=== PATIENT | male | born 1950 | race Caucasian/White ===

== ENCOUNTER → 2021-08-23 10:32 | Outpatient (CLI) | payer MEDICARE, OTHER, SELFPAY ==
--- NOTE | 2021-08-23 10:36 | DI.CT.S_ITS ---
PROCEDURE: CT CHEST ABD PEL W CON INDICATIONS: new diagnosis prostate CA TECHNIQUE: After the administration of oral and intravenous contrast, axial sections acquired from the supraclavicular neck to the pubic symphysis. Coronal and sagittal reformats were performed. For radiation dose reduction, the following was used: automated exposure control, adjustment of mA and/or kV according to patient size. COMPARISON:None. FINDINGS: Image quality: Excellent. CHEST: Lower Neck: No enlarged lymph nodes. Thyroid: 5.6 mm hypoattenuating lesion in the right thyroid, which may reflect a nodule or cyst. Axillae: No enlarged lymph nodes. Chest Wall: Unremarkable. Lungs and Airways: No consolidation or suspicious nodules. Pleura: No pneumothorax or pleural effusions. Heart: Heart size is normal. No pericardial effusion. Coronary artery calcification. Thoracic Vessels: The aorta and pulmonary arteries demonstrate normal size. Mediastinum and Sadaf: No enlarged lymph nodes. Esophagus: No wall thickening. No hiatal hernia. ABDOMEN: Liver: Hepatic steatosis. Normal contour. Gallbladder: Unremarkable. Biliary ducts: Unremarkable. Pancreas: Unremarkable. Spleen: Unremarkable. Adrenal Glands: Unremarkable. Kidneys and Ureters: Symmetric enhancement without evidence of obstructive uropathy 2.2 cm hypoattenuating lesion in the right lower pole, which may represent a mildly complex cyst. Stomach and Bowel: Stomach, small bowel loops, and colon are unremarkable. Normal appendix. Peritoneum: No abnormal intraperitoneal fluid. No free air. Ventral Wall: Small fat containing periumbilical hernia. Abdominal Nodes: No retroperitoneal or mesenteric adenopathy by size criteria. Vessels: Aorta and inferior vena cava are normal in size. PELVIS: Pelvic Organs: Unremarkable. Bladder: Unremarkable. Pelvic Nodes: No enlarged lymph nodes. Miscellaneous: No inguinal hernias are seen. Bones: Multifocal degenerative change. IMPRESSION: 1. Mildly complex cyst in the right inferior lower pole. Consider renal ultrasound for further evaluation. 2. No suspicious osseous lesions. 3. Subcentimeter hypoattenuating lesion in the right thyroid, which may reflect a nodule or cyst. Consider correlation with thyroid function tests and ultrasound as clinically warranted. Dictated by: Osmar Arndt M.D. on 08/23/2021 at 13:20 Approved by: Osmar Arndt M.D. on 08/23/2021 at 13:28
--- NOTE | 2021-08-23 10:36 | DI.NM.S_ITS ---
PROCEDURE: NM BONE SCAN WHOLE BODY RADIOPHARMACEUTICAL: 20.4 mCi Tc-99m MDP IV. INDICATIONS: new diagnosis prostate CA TECHNIQUE: Delayed whole-body scintigrams were obtained approximately 3-4 hours after intravenous injection of radiotracer. Anterior and posterior views were acquired from vertex to feet. Additional left and right oblique views of the pelvis were obtained. COMPARISON: [facility], CT, CT CHEST ABD PEL W CON, 08/23/2021, 13:06. FINDINGS: Physiologic uptake is noted within the kidneys and bladder. Areas of increased uptake are noted within the shoulder girdles, knees as well as small bones of the feet most suggestive of degenerative change. There is increased uptake within the midline of the lower anterior neck, below the chin. IMPRESSION: Uptake is noted within the midline below the chin suspected to be related to degenerative change in the cervical spine. No definitive areas of metastatic disease are identified. Dictated by: Isela Howard M.D. on 08/23/2021 at 16:28 Approved by: Isela Howard M.D. on 08/23/2021 at 16:32
[2021-08-23 12:36] LABS: BUN Creatinine Ratio 15.8 (6-22); Blood Urea Nitrogen 15 mg/dL (9-20); Calcium 9.5 mg/dL (8.4-10.2); Carbon Dioxide 30 mmol/L (22-32); Chloride 103 mmol/L (98-107); Estimated Glomerular Filt Rate > 60.0 mL/min (>60); Glucose 127 mg/dL (80-110); HEMOLYSIS < 15 (0-50); Potassium 3.4 mmol/L (3.4-5.1); Sodium 140 mmol/L (137-145)
== END ==
PROVIDERS: PCP Family Medicine; Referring Provider Specialist; Visit Provider Specialist
DX: C61 Malignant neoplasm of prostate (principal); M81.8 Other osteoporosis without current pathological fracture; T38.7X5A Adverse effect of androgens and anabolic congeners, initial encounter; Z01.812 Encounter for preprocedural laboratory examination; N28.1 Cyst of kidney, acquired; E07.89 Other specified disorders of thyroid
CPT/HCPCS: 36415; 71260; 74177; 78306; 80048; A9503; Q9967

== ENCOUNTER → 2021-10-05 12:50 | Outpatient (CLI) | payer MEDICARE, OTHER, SELFPAY ==
--- NOTE | 2021-10-05 12:55 | DI.US.S_ITS ---
PROCEDURE: US RENAL COMPLETE INDICATIONS: nodular prostate TECHNIQUE: Real-time scanning was performed of the kidneys and bladder, with image documentation. COMPARISON: [facility], CT, CT CHEST ABD PEL W CON, 08/23/2021, 13:06. [facility], NM, NM BONE SCAN WHOLE BODY, 08/23/2021, 13:54. FINDINGS: Kidneys: Kidneys are normal in size. Right kidney measures 12.9 cm long; left kidney measures 14.7 cm long. Right renal cortical thickness is 1.2 cm; left renal cortical thickness is 1.3 cm. Renal cortical echotexture is normal. No hydronephrosis or nephrolithiasis. No suspicious solid mass lesions. There is a 2.5 x 1.8 x 1.8 cm cyst in the inferior right kidney. Bladder: Pre-void bladder volume is 167 mL. Post-void residual is 0 mL. Pre-void images demonstrate no intraluminal masses or stones. On pre-void images, neither ureteral jets are noted with color Doppler interrogation. (Of note, ureteral jets may not be detectable in up to 25% of cases due to insufficient differences in specific gravity between ureteral and bladder urine). Miscellaneous: No free pelvic fluid. IMPRESSION: 1. Prostate is not visualized. 2. No significant postvoid residual in urinary bladder. 3. A 2.5 x 1.8 x 1.8 cm cyst in the inferior right kidney. No hydronephrosis in either kidneys. Dictated by: Rufino Webb M.D. on 10/05/2021 at 14:38 Approved by: Rufino Webb M.D. on 10/05/2021 at 14:55
[2021-10-05 15:21] LABS: Prostate Specific Antigen 3.23 ng/mL (0.10-4.00)
== END ==
PROVIDERS: PCP Family Medicine; Referring Provider Specialist; Visit Provider Specialist
DX: M81.8 Other osteoporosis without current pathological fracture (principal); N40.2 Nodular prostate without lower urinary tract symptoms; R97.20 Elevated prostate specific antigen [PSA]; N28.1 Cyst of kidney, acquired
CPT/HCPCS: 36415; 76770; 77080; 84153

== ENCOUNTER → 2022-03-19 11:39 | Outpatient (CLI) | payer MEDICARE, OTHER, SELFPAY ==
[2022-03-19 14:32] LABS: Prostate Specific Antigen 1.19 ng/mL (0.10-4.00)
== END ==
PROVIDERS: PCP Family Medicine; Referring Provider Specialist; Visit Provider Specialist
DX: C61 Malignant neoplasm of prostate (principal)
CPT/HCPCS: 36415; 51798; 81002; 84153; 96372; 96402; 99215; J0897; J9217

== ENCOUNTER → 2022-06-06 15:14 | Outpatient (CLI) | payer MEDICARE, OTHER, SELFPAY ==
--- NOTE | 2022-06-06 15:18 | DI.CT.S_ITS ---
PROCEDURE: CT IVP A/P W/WO INDICATIONS: possible bleeding from bladder TECHNIQUE: Optional 5 mm thick noncontrast images acquired from the diaphragm to the symphysis pubis. After the administration of intravenous contrast, 5 mm thick images acquired from the diaphragm to the symphysis pubis after a 10-minute delay. 2 mm thick coronal and sagittal reformats were then performed of the kidneys and ureters. For radiation dose reduction, the following was used: automated exposure control, adjustment of mA and/or kV according to patient size. COMPARISON: [facility], CT, CT CHEST ABD PEL W CON, 08/23/2021, 13:06. FINDINGS: Image quality: Excellent. Lung bases: Lung bases are clear. Heart size is normal. Urinary system: Both kidneys are normal in size, without hydronephrosis or nephrolithiasis on pre-contrast images. Redemonstration of 2.2 cm inferior right renal pole hypodensity likely representing a renal cyst. This is stable in appearance. Stable appearance of minimal perinephric stranding likely related to senescent changes. There is normal bilateral renal enhancement. Renal calyces appear normal in morphology when filled with contrast. Opacified portions of both ureters demonstrate normal caliber. Bladder wall thickness is normal. No calcified bladder stones. No suspicious intraluminal filling defects or focally asymmetric urinary bladder wall abnormalities. Other solid organs: Liver is normal in size and enhancement. Gallbladder is unremarkable.. Biliary system is non dilated. Pancreas enhances normally. Spleen is normal in size and enhancement. No adrenal nodules. Peritoneum and bowel: Bowel loops demonstrate normal wall thickness and caliber. No free fluid or air. Nodes and vessels: No retroperitoneal or mesenteric adenopathy by size criteria. Aorta and inferior vena cava are normal in size. Abdominal wall: Fat containing umbilical hernia without acute inflammation. Pelvis: No pathologic free pelvic fluid. No inguinal hernias. No pelvic adenopathy. Interval visualization of surgical clips versus radiation seeds within the prostate. Bones: No suspicious bony lesions. No acute vertebral body compression fractures. Multilevel spondylosis of the imaged spine. IMPRESSION: 1. CT IVP without acute abnormalities. No abnormalities identified to explain patient's hematuria. No evidence for urolithiasis or obstructive uropathy. 2. Stable appearance of 2.2 cm inferior pole right renal cyst. 3. No suspicious osseous lesions. Dictated by: Mika Park M.D. on 06/06/2022 at 21:10 Approved by: Mika Park M.D. on 06/06/2022 at 21:30
[2022-06-06 15:55] LABS: BUN Creatinine Ratio 22.4 (6-22); Blood Urea Nitrogen 19 mg/dL (9-20); Calcium 8.8 mg/dL (8.4-10.2); Carbon Dioxide 25 mmol/L (22-32); Chloride 106 mmol/L (98-107); Estimated Glomerular Filt Rate > 60 mL/min (>60); Glucose 167 mg/dL (80-110); HEMOLYSIS < 15 (0-50); Potassium 3.1 mmol/L (3.4-5.1); Sodium 143 mmol/L (137-145)
== END ==
PROVIDERS: PCP Family Medicine; Referring Provider Specialist; Visit Provider Specialist
DX: C61 Malignant neoplasm of prostate (principal); N28.1 Cyst of kidney, acquired
CPT/HCPCS: 36415; 74178; 80048; Q9967

== ENCOUNTER → 2022-06-18 09:10 | Outpatient (CLI) | payer MEDICARE, OTHER, SELFPAY ==
[2022-06-18 10:55] LABS: Prostate Specific Antigen 0.485 ng/mL (0.10-4.00)
== END ==
PROVIDERS: PCP Family Medicine; Referring Provider Specialist; Visit Provider Specialist
DX: C61 Malignant neoplasm of prostate (principal); N30.41 Irradiation cystitis with hematuria
CPT/HCPCS: 51798; 81002; 84153; 96402; 99215; J9217

== ENCOUNTER → 2022-09-17 11:12 | Outpatient (CLI) | payer MEDICARE, OTHER, SELFPAY | PROVIDERS: PCP Family Medicine; Referring Provider Specialist; Visit Provider Specialist | DX: C61 Malignant neoplasm of prostate (principal) | CPT/HCPCS: 36415; 84153 ==

== ENCOUNTER → 2023-01-02 09:05 | Outpatient (CLI) | payer MEDICARE, OTHER, SELFPAY ==
[2023-01-02 11:42] LABS: Prostate Specific Antigen 0.256 ng/mL (0.10-4.00)
== END ==
PROVIDERS: PCP Family Medicine; Referring Provider Specialist; Visit Provider Specialist
DX: C61 Malignant neoplasm of prostate (principal)
CPT/HCPCS: 36415; 84153

== ENCOUNTER → 2023-04-02 14:15 | Outpatient (CLI) | payer MEDICARE, OTHER, SELFPAY ==
[2023-04-02 15:54] LABS: Prostate Specific Antigen 0.213 ng/mL (0.10-4.00)
== END ==
PROVIDERS: PCP Family Medicine; Referring Provider Specialist; Visit Provider Specialist
DX: C61 Malignant neoplasm of prostate (principal)
CPT/HCPCS: 36415; 84153

== ENCOUNTER 2024-01-27 20:16 | Emergency (ER) | payer MEDICARE, OTHER, SELFPAY ==
[2024-01-27] VITALS (9 sets, daily range): BP systolic 154–179; BP diastolic 70–92; PULSE 60–90; RESP 16–18; TEMP 36.4; O2SAT 95–99; BMI 31.8
--- NOTE | 2024-01-27 21:22 | DI.RAD.S_ITS ---
PROCEDURE: XR LUMBAR SPINE 2-3V INDICATIONS: pain after fall TECHNIQUE: 3 views of the lumbar spine were acquired. COMPARISON: None. FINDINGS: Bones: 5 [id number] vertebrae are present. Mild straightening of the normal lumbar lordosis. Minimal retrolisthesis of L2 on L3. There is multilevel facet arthropathy, worse at L4-5 and L5-S1. Moderate disc height loss with degenerative endplate changes and spurring is present. No vertebral body compression fractures. No suspicious bony lesions. Soft tissues: Overlying bowel gas pattern is normal. No suspicious soft tissue calcifications. Atherosclerotic vascular calcifications. IMPRESSION: Multilevel degenerative changes of the lumbar spine. No acute osseous abnormalities. Dictated by: Cornel Roman M.D. on 01/27/2024 at 21:41 Approved by: Cornel Roman M.D. on 01/27/2024 at 21:42
--- NOTE | 2024-01-27 21:26 | ED_ITS ---
HPI - Back Pain/Injury General Chief Complaint: Back Pain/Injury Stated Complaint: back pain Time Seen by Provider: 01/27/24 21:06 Source: patient and EMS History of Present Illness HPI Narrative: Patient is a 73-year-old male. History of Parkinson's disease. States he fell approximately 1 week ago. Did not specifically injured his back during that fall but since that time he has had occasional episodes where he feels like his back is spasming. He was Tylenol at home which he has been taking without any improvement. He reports no urinary issues. No change in bowel habits. No radiation down to his legs. He did receive some pain medication by EMS in route here to the ER which she reports some improvement of his symptoms. The symptoms do seem to be associated with movement. No fevers. He did not take his evening dose of Parkinson's medicines Related Data Home Medications Medication Instructions Recorded Confirmed amlodipine 5 mg tablet 2.5 mg PO DAILY 09/17/22 09/30/23 hydrochlorothiazide 25 mg tablet 12.5 mg PO DAILY 09/17/22 09/30/23 magnesium citrate 100 mg capsule 100 mg PO DAILY 01/02/23 09/30/23 tadalafil 20 mg tablet 20 mg PO DAILY PRN 01/02/23 09/30/23 Previous Rx's Medication Instructions Recorded atorvastatin 10 mg tablet 10 mg PO DAILY #14 tabs 12/01/20 carbidopa 25 mg-levodopa 100 mg 1 tab PO TID #60 tabs 12/01/20 disintegrating tablet pramipexole 0.75 mg tablet 1.5 mg (2 x 0.75 mg) PO TID #90 12/01/20 tabs tamsulosin 0.4 mg capsule 0.8 mg (2 x 0.4 mg) PO BEDTIME 01/02/23 #180 caps megestrol 20 mg tablet 20 mg PO DAILY #80 tabs 09/15/23 cyclobenzaprine 10 mg tablet 10 mg PO TID PRN muscle spasm #14 01/28/24 tabs hydrocodone 5 mg-acetaminophen 325 1 tab PO Q8H PRN pain #12 tabs 01/28/24 mg tablet Allergies Allergy/AdvReac Type Severity Reaction Status Date / Time bee venom protein (honey bee) Allergy Verified 01/27/24 20:29 Review of Systems Review of Systems Narrative: See HPI Patient History Medical History Erectile dysfunction due to and not concurrent with radiation therapy Lower urinary tract symptoms (LUTS) 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 Prostate cancer Nodular prostate Hyperlipemia Elevated PSA Depressive disorder Parkinson's disease Surgical History H/O vasectomy Family History Family/Other Parkinson's disease Father Heart disease Mother Hyperlipidemia Hypertension Social History marital status: unmarried,single number of children: 2 Smoking Status: Never smoker Smoking Status: Never smoker alcohol intake frequency: 0-2 drinks per day Substance Use Type: does not use Exam Initial Vital Signs Initial Vital Signs: Vital Signs Temperature 97.5 F L 01/27/24 20:22 Pulse Rate 60 01/27/24 20:22 Respiratory Rate 17 01/27/24 20:22 Blood Pressure 163/82 H 01/27/24 20:22 Pulse Oximetry 95 01/27/24 20:22 Oxygen Delivery Method Room Air 01/27/24 20:22 Const General: cooperative and No ill appearing HENMT Head: normal to inspection and normocephalic Resp Effort & Inspection: normal respiratory effort Auscultation: clear to auscultation bilaterally Cardio Rate: regular rate Back/Spine/Pelvis Thoracic/Lumbar Spine: paraspinal tenderness, No thoracic spinal tenderness and No lumbar spinal tenderness Neuro Other: Patient did have some involuntary shaking specifically of his upper arms consistent with his Parkinson's disease. Extrem Other: No gross deformities Course Orders Ordered: Discontinued Medications Hydrocodone Bitart/Acetaminophen (Hydrocodone/Acet 5/325 Tablet) 1 tab PO NOW ONE Stop: 01/28/24 04:49 Last Admin: 01/28/24 05:06 Dose: 1 tab Documented By: ANTONIO Hydrocodone Bitart/Acetaminophen (Hydrocodone/Acet 5/325 Prepack) 1 bottle MISC DIRECTED ONE Stop: 01/28/24 06:16 Last Admin: 01/28/24 06:38 Dose: 1 bottle Documented By: DAKOTA Amlodipine Besylate (Amlodipine 5 Mg Tablet) 2.5 mg PO NOW ONE Stop: 01/28/24 08:01 Last Admin: 01/28/24 07:21 Dose: 2.5 mg Documented By: YU Carbidopa/Levodopa (Carbidopa-Levodopa 25/100 Tablet) 1 each PO NOW ONE Stop: 01/27/24 21:25 Last Admin: 01/27/24 22:06 Dose: 1 each Documented By: ANTONIO Carbidopa/Levodopa (Carbidopa-Levodopa 25/100 Tablet) 1 each PO NOW ONE Stop: 01/28/24 08:01 Last Admin: 01/28/24 07:20 Dose: 1 each Documented By: YU Cyclobenzaprine HCl (Cyclobenzaprine 10 Mg Tablet) 10 mg PO NOW ONE Stop: 01/28/24 04:48 Last Admin: 01/28/24 05:06 Dose: 10 mg Documented By: ANTONIO Cyclobenzaprine HCl (Cyclobenzaprine 10 Mg Prepack) 1 bottle MISC DIRECTED ONE Stop: 01/28/24 06:16 Last Admin: 01/28/24 06:38 Dose: 1 bottle Documented By: DAKOTA Hydrochlorothiazide (Hydrochlorothiazide 25 Mg Tablet) 12.5 mg PO NOW ONE Stop: 01/28/24 08:01 Last Admin: 01/28/24 07:20 Dose: 12.5 mg Documented By: YU Hydromorphone HCl (Hydromorphone 0.5 Mg Inj) 0.5 mg IV NOW ONE Stop: 01/27/24 23:08 Last Admin: 01/28/24 00:21 Dose: 0.5 mg Documented By: ANTONIO Lidocaine (Lidocaine 5% Patch) 1 each TOP NOW ONE Stop: 01/28/24 04:48 Last Admin: 01/28/24 05:06 Dose: 1 each Documented By: ANTONIO Pramipexole Dihydrochloride (Pramipexole 0.25 Mg Tablet) 1.5 mg PO NOW ONE Stop: 01/27/24 21:26 Last Admin: 01/27/24 22:06 Dose: 1.5 mg Documented By: ANTONIO Pramipexole Dihydrochloride (Pramipexole 0.25 Mg Tablet) 1.5 mg PO NOW ONE Stop: 01/28/24 08:01 Last Admin: 01/28/24 07:19 Dose: 1.5 mg Documented By: YU Vital Signs Vital signs: Vital Signs - 8 hr 01/27/24 22:30 01/27/24 22:30 01/27/24 23:00 Pulse Rate 68 Respiratory Rate Blood Pressure 154/70 H 170/75 H Pulse Oximetry 98 01/27/24 23:00 01/27/24 23:46 01/27/24 23:46 Pulse Rate 66 90 Respiratory Rate 18 Blood Pressure 179/92 H Pulse Oximetry 97 96 01/28/24 00:00 01/28/24 00:00 01/28/24 00:30 Pulse Rate 75 63 Respiratory Rate 18 Blood Pressure 177/93 H Pulse Oximetry 95 92 01/28/24 00:39 01/28/24 00:39 01/28/24 01:00 Pulse Rate 65 Respiratory Rate Blood Pressure 131/69 131/72 Pulse Oximetry 94 01/28/24 01:00 01/28/24 01:30 01/28/24 01:31 Pulse Rate 62 60 Respiratory Rate Blood Pressure 147/77 H Pulse Oximetry 95 97 01/28/24 01:31 01/28/24 02:00 01/28/24 02:00 Pulse Rate 60 60 Respiratory Rate 18 Blood Pressure 160/76 H Pulse Oximetry 97 97 01/28/24 02:13 01/28/24 02:31 01/28/24 03:01 Pulse Rate Respiratory Rate 18 Blood Pressure 161/92 H 182/86 H Pulse Oximetry 94 01/28/24 04:00 Pulse Rate Respiratory Rate Blood Pressure 188/115 H Pulse Oximetry MDM - Back Pain/Injury Imaging Data Lumbar spine x-ray: Radiologist's Impression: PROCEDURE: XR LUMBAR SPINE 2-3V INDICATIONS: pain after fall TECHNIQUE: 3 views of the lumbar spine were acquired. COMPARISON: None. FINDINGS: Bones: 5 [id number]-iev-[id number] vertebrae are present. Mild straightening of the normal lumbar lordosis. Minimal retrolisthesis of L2 on L3. There is multilevel facet arthropathy, worse at L4-5 and L5-S1. Moderate disc height loss with degenerative endplate changes and spurring is present. No vertebral body compression fractures. No suspicious bony lesions. Soft tissues: Overlying bowel gas pattern is normal. No suspicious soft tissue calcifications. Atherosclerotic vascular calcifications. IMPRESSION: Multilevel degenerative changes of the lumbar spine. No acute osseous abnormalities. MDM Narrative Medical decision making narrative: Some improvement with medications here in the emergency department. It appears that the muscle relaxers have had the most improvement. He was here in the emergency department overnight because he did not have a ride back to his house which is on [facility]. His x-ray showed no signs of fracture. I do suspect muscular etiology. Plan will be to discharge home with symptom treatment. He was also given a walker that he can use as needed. He was given return precautions and follow-up instructions. He expressed understanding and agreement with plan. Discharge Plan Departure Patient Disposition: Home Clinical Impression: Lower back pain Instructions: DI for Low Back Pain Activity Restrictions/Additional Instructions: Continue to take all of your medications as directed. Use the pain medication and muscle relaxers as needed. Remember these medications can make you somewhat drowsy. Use the walker as needed. Contact your primary doctor for follow-up. Return to the emergency department for new symptoms. Prescriptions: New cyclobenzaprine 10 mg tablet 10 mg PO TID PRN (Reason: muscle spasm) Qty: 14 0RF hydrocodone-acetaminophen 5-325 mg tablet 1 tab PO Q8H PRN (Reason: pain) Qty: 12 0RF No Action carbidopa-levodopa 25-100 mg tablet,disintegrating 1 tab PO TID Qty: 60 0RF pramipexole 0.75 mg tablet 1.5 mg PO TID Qty: 90 0RF atorvastatin 10 mg tablet 10 mg PO DAILY Qty: 14 0RF megestrol 20 mg tablet 20 mg PO DAILY Qty: 80 0RF amlodipine 5 mg tablet 2.5 mg PO DAILY hydrochlorothiazide 25 mg tablet 12.5 mg PO DAILY magnesium citrate 100 mg capsule 100 mg PO DAILY tadalafil 20 mg tablet 20 mg PO DAILY PRN Rx Instructions: administer approximately 30min before sexual activity; do not use more than 1 dose per 24hrs tamsulosin 0.4 mg capsule 0.8 mg PO BEDTIME Qty: 180 3RF Referrals: Tim Kellogg MD [Primary Care Provider] - Stand Alone Forms: Patient Portal/API
[2024-01-27] MEDS: CARBIDOPA-LEVODOPA 25/100 TABLET 1 EACH PO (22:06)
[2024-01-27] MEDS: PRAMIPEXOLE 0.25 MG TABLET 1.5 MG PO (22:06)
[2024-01-28] VITALS (12 sets, daily range): BP systolic 131–188; BP diastolic 69–115; PULSE 60–75; RESP 16–18; O2SAT 92–97
[2024-01-28] MEDS: HYDROMORPHONE 0.5 MG INJ IV (00:21)
[2024-01-28] MEDS: LIDOCAINE 5% PATCH 1 EACH TOP (05:06)
[2024-01-28] MEDS: HYDROCODONE/ACET 5/325 TABLET 1 TAB PO (05:06)
[2024-01-28] MEDS: CYCLOBENZAPRINE 10 MG TABLET PO (05:06)
[2024-01-28] MEDS: HYDROCODONE/ACET 5/325 PREPACK 1 BOTTLE MISC (06:38)
[2024-01-28] MEDS: CYCLOBENZAPRINE 10 MG PREPACK 1 BOTTLE MISC (06:38)
[2024-01-28] MEDS: PRAMIPEXOLE 0.25 MG TABLET 1.5 MG PO (07:19)
[2024-01-28] MEDS: hydroCHLOROthiazide 25 MG TABLET 12.5 MG PO (07:20)
[2024-01-28] MEDS: CARBIDOPA-LEVODOPA 25/100 TABLET 1 EACH PO (07:20)
[2024-01-28] MEDS: AMLODIPINE 5 MG TABLET 2.5 MG PO (07:21)
--- NOTE | 2024-01-28 08:20 | PC.NURSE ---
Pt sitting in wheelchair in room. cab called for pt by MARC. Pt states his pain is a little better from his arrival. Pt with parkinsons and assisted with shoes. DC info given and pt with verbal understanding. cell phone wallet and prepacks with DC instructions placed in belongings bag. Walker provided. Pt assisted to front ER entrance and assisted into [facility] cab.
== END 2024-01-28 08:23 | disposition home or self-care (01) ==
PROVIDERS: Emergency Provider Emergency Medicine; PCP Family Medicine
DX: M54.50 Low back pain, unspecified (principal); G20.A1 Parkinson's disease without dyskinesia, without mention of fluctuations
CPT/HCPCS: 72100; 96374; 99284; J1170

== ENCOUNTER → 2024-09-24 16:27 | Outpatient (CLI) | payer MEDICARE, OTHER, SELFPAY ==
[2024-09-24 17:47] LABS: Prostate Specific Antigen 0.309 ng/mL (0.10-4.00)
== END ==
PROVIDERS: PCP Family Medicine; Referring Provider Urology; Visit Provider Urology
DX: C61 Malignant neoplasm of prostate (principal)
CPT/HCPCS: 36415; 84153

== ENCOUNTER → 2024-10-19 09:53 | Outpatient (CLI) | payer MEDICARE, OTHER, SELFPAY ==
--- NOTE | 2024-10-19 09:55 | DI.NM.S_ITS ---
PROCEDURE: NM JUAN FRANCISCO PERF SPECT R&S PHARM Rest and pharmacological stress myocardial perfusion SPECT with gated imaging and ejection fraction RADIOPHARMACEUTICAL: 12.3 mCi Tc-99m tetrafosmin IV at rest and 26.3 mCi Tc-99m tetrafosmin IV at peak effect of pharmacological stress. [id number] was performed. INDICATIONS: SOB TECHNIQUE: Radiopharmaceutical was injected at peak stress test, and also at rest. SPECT images were obtained. SPECT myocardial perfusion images were displayed in short axis, horizontal long axis, and vertical long axis views. Gated images were reviewed using LAFASO software. COMPARISON: None. CARDIAC STRESS: A pharmacologic stress test was performed under the supervision of an attending staff, using an infusion of lexiscan 0.4mg IV X1. Hemodynamic data: There is normal blood pressure and heart rate response to pharmacologic stress. Symptoms: The patient denied anginal chest pain. Aminophylline: none EKG: Rate related LBBB present. No diagnostic changes of ischemia; no ectopy. FINDINGS: Raw data: There is good myocardial uptake of radiotracer. No significant motion artifacts. Iqyi-ux-ecqap ratio is 0.34 (normal is less than 0.38 for tetrafosmin tracer). Left ventricle function: Gated images demonstrate normal left ventricular wall thickening. No segmental wall motion abnormalities. No transient ischemic dilation; TID is 0.91 (normal less than 1.3). Left ventricle resting end diastolic volume is 160mL. Left ventricle stress ejection fraction is 71%; normal range is above 45%. Myocardial perfusion: There is a mildly intense fixed inferior wall defect that is probably artifact but old non-transmural infarction can't be excluded due to absence of prone images. IMPRESSION: Low risk, probably normal pharm nuclear stress test from inducible ischemia standpoint. 1) There is a mildly intense fixed inferior wall defect that is probably artifact but old non-transmural infarction can't be excluded due to absence of prone images. SSS 1. 2) Enlarged left ventricle (resting EDV 160cc) with normal wall motion, and normal systolic function (EF post stress 71%). 3) No diagnostic ST changes with lexiscan. Rate related LBBB present during the study. 4) No angina during the study. 5) No prior nuclear stress test available for comparison. Dictated by: Tamanna Siu MD on 10/20/2024 at 13:22 Approved by: Tamanna Siu MD on 10/20/2024 at 13:26
== END ==
LOC: NUCM 09:54
PROVIDERS: PCP Family Medicine; Referring Provider Internal Medicine Cardiovascular Disease; Visit Provider Internal Medicine Cardiovascular Disease
DX: R06.02 Shortness of breath (principal)
CPT/HCPCS: 78452; 93017; A9502; J2785

== ENCOUNTER 2024-11-11 22:25 | Inpatient (IN) | payer MEDICARE, OTHER, SELFPAY ==
[2024-11-11 22:32] VITALS: BP 171/86; PULSE 77; RESP 18; TEMP 38.1; BMI 33.2
--- NOTE | 2024-11-11 22:34 | EKG_ITS ---
[id number] [address] Test Date: 2024-11-11 Pat Name: Laureano Solomon Department: Room: 207 Gender: Male [employer]: AXEL : 1950 Requested By: Order Number: [id number] Reading MD: Camden Suarez Measurements Intervals [place] Rate: 70 P: 46 ID: [id number] QRS: 57 QRSD: 92 T: 246 QT: 354 QTc: 382 Interpretive Statements Normal sinus rhythm ST & T wave abnormality, consider inferolateral ischemia Electronically Signed On 11-12-2024 16:16:46 PDT by Camden Suarez
[2024-11-11 22:59] LABS: Appearance Urine UA CLEAR; Bilirubin Urine UA NEGATIVE (NEGATIVE); Color Urine UA YELLOW; Glucose Urine UA NEGATIVE (Negative); Ketones Urine UA TRACE (NEGATIVE); Leukocyte Esterase Urine UA NEGATIVE (NEGATIVE); Nitrite Urine UA NEGATIVE (Negative); Occult Blood Urine UA NEGATIVE (Negative); Protein Urine UA NEGATIVE (Negative); Specific Gravity Urine UA 1.025 (1.000-1.035); Urobilinogen Urine UA 0.2 E.U./dL (0.2); pH Urine UA 5.5 (4.5-8.0)
[2024-11-11 23:00] VITALS: PULSE 69; RESP 25; O2SAT 95
[2024-11-11 23:03] LABS: Ictotest Urine Negative (Negative)
[2024-11-11 23:05] LABS: Bacteria Urine Occasional (0-1); Culture Indicated Urine Cult Not Indicated; Mucus Urine 1+ (Negative); RBC Urine 0-1/HPF (0-5/HPF); Squamous Epithelial Cell Urine 0-1 /HPF (0-5/HPF); Urine Volume 10mL (spun); WBC Urine 0-1/HPF (0-5/HPF)
--- NOTE | 2024-11-11 23:25 | DI.RAD.S_ITS ---
PROCEDURE: XR CHEST 1V INDICATIONS: fever, weakness TECHNIQUE: One view of the chest was acquired. COMPARISON: [facility], CT, CT CHEST ABD PEL W CON, 08/23/2021, 13:06. FINDINGS AND IMPRESSION: Low lung volumes. No airspace consolidation or pleural effusion on this single view study. Heart size is within normal limits. Degenerative osseous changes. Dictated by: Anoop Mcwilliams M.D. on 11/12/2024 at 0:14 Approved by: Anoop Mcwilliams M.D. on 11/12/2024 at 0:15
[2024-11-11 23:30] VITALS: PULSE 80; RESP 25; O2SAT 95
--- NOTE | 2024-11-11 23:32 | ED.WEAKNESS ---
HPI - Weakness General Chief complaint: Weakness Stated complaint: GLF lift assist Time Seen by Provider: 11/11/24 23:20 Source: patient and EMS Mode of arrival: EMS History of Present Illness HPI Narrative: 74-year-old male history of Parkinson's disease, VANDA, BPH, hypertension, dyslipidemia patient presents with complaint of increased weakness and inability to get out of his bed today. He was noticed some increasing weakness over the past 2 or 3 days. Was febrile for EMS and here in the department. He has not really appreciate a lot of fevers recently. Notes a little bit of chest pain but states that is typically related to his Parkinson's. Denies new shortness of breath. He was has a little bit of a cough he states it has been nonproductive he has not appreciate any other cold symptoms. States no nausea or vomiting. He was had diarrhea intermittently for the past month. States he has a little bit of abdominal discomfort yesterday but none today. No black or bloody stools. Patient states no dysuria, urgency or frequency. He notes generalized weakness of his extremities he can move them but was not able to get out of bed he usually uses his door to assist him which is close to the bed. Patient states he was on medications for his Parkinson's. He was denies any prior surgeries. He states allergic to bees but no medications. No tobacco, occasional alcohol, no recreational drugs. He lives on [facility]. He lives independently and alone. Today he reached a point where he could not get out of bed EMS arrived and was transported here. Related Data Home Medications ?Medication ?Instructions ?Recorded ?Confirmed amlodipine 5 mg tablet 2.5 mg PO DAILY 09/17/22 11/12/24 hydrochlorothiazide 25 mg tablet 12.5 mg PO DAILY 09/17/22 11/12/24 magnesium citrate 100 mg capsule 100 mg PO DAILY 01/02/23 11/12/24 tadalafil 20 mg tablet 20 mg PO DAILY PRN sexual activity 01/02/23 11/12/24 cyclobenzaprine 10 mg tablet 10 mg PO BEDTIME PRN muscle spasm 11/12/24 11/12/24 Previous Rx's ?Medication ?Instructions ?Recorded carbidopa 25 mg-levodopa 100 mg 1 tab PO TID #60 tabs 12/01/20 disintegrating tablet pramipexole 0.75 mg tablet 1.5 mg (2 x 0.75 mg) PO TID #90 12/01/20 tabs hydrocodone 5 mg-acetaminophen 325 1 tab PO Q8H PRN pain #12 tabs 01/28/24 mg tablet tamsulosin 0.4 mg capsule 0.4 mg PO DAILY #90 caps 09/24/24 Allergies Allergy/AdvReac Type Severity Reaction Status Date / Time bee venom protein (honey bee) Allergy Verified 09/24/24 15:44 Review of Systems Review of Systems ROS Unobtainable: All systems reviewed & are unremarkable except as noted in HPI and below Patient History Medical History Erectile dysfunction due to and not concurrent with radiation therapy Lower urinary tract symptoms (LUTS) 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 HEENT: Atraumatic, pupils are equal round reactive to light, extraocular movements are intact, nares are clear, TMs are clear with no fluid, there is no conjunctival pallor. Throat is clear without any exudates, erythema, tonsillar enlargement or uvular deviation HEART: Regular rate and rhythm without murmur, clicks, rubs. pulses are equal in upper and lower extremities LUNGS:Lungs clear to auscultation, no wheezes, rales, crackles, chest moves symmetrically, no tachypnea or accessory muscle use ABD:bowel sounds normal, soft, non-tender, no guarding, rebound, rigidity, no masses noted, no hepatosplenomegaly :No CVA tenderness MSCL: Non-tender, no muscle atrophy, patient has some global weakness but is able to lift and move all of his extremities off of the bed equally, full range of motion. NEURO:CN 2-12 intact, sensation normal, patient was pill-rolling tremor bilateral upper extremities and tremors in general. Initial Vital Signs Initial Vital Signs: Vital Signs Temperature 100.6 F H 11/11/24 22:32 Pulse Rate 77 11/11/24 22:32 Respiratory Rate 18 11/11/24 22:32 Blood Pressure 171/86 H 11/11/24 22:32 Course Orders Ordered: ED Orders 11/11/24 22:49 Ictotest Urine Stat Urinalysis and Microscopic Stat 11/11/24 22:50 EKG-12 Lead Stat 11/11/24 23:25 Chest [XR chest 1V] Stat 11/12/24 00:00 Covid-19 + FLU A/B + RSV - PCR Stat Discontinued Medications Acetaminophen (Acetaminophen 325 Mg Tablet) 975 mg PO NOW ONE Stop: 11/11/24 23:43 Vital Signs Vital signs: Vital Signs - 8 hr 11/11/24 22:32 11/11/24 23:00 11/11/24 23:30 Temperature 100.6 F H Pulse Rate 77 69 80 Respiratory Rate 18 25 H 25 H Blood Pressure 171/86 H Pulse Oximetry 95 95 11/12/24 00:12 11/12/24 00:12 11/12/24 00:49 Temperature Pulse Rate 71 71 Respiratory Rate 20 18 Blood Pressure 165/68 H Pulse Oximetry 97 96 11/12/24 00:49 Temperature Pulse Rate Respiratory Rate Blood Pressure 138/88 Pulse Oximetry MDM - Weakness Lab Data 11/11/24 00:00 11/11/24 00:00 Labs: Lab Results 11/11/24 11/11/24 Range/Units 00:00 22:49 WBC 7.4 (4.5-11.0) X10^3/uL RBC 4.69 (4.5-5.9) X10^6/uL Hgb 13.8 (13.5-17.5) g/dL Hct 40.7 L (41-53) % MCV 86.8 (80-100) fL MCH 29.4 (26-34) PG MCHC 33.9 (30-36) % RDW 14.8 (11.6-14.8) % Plt Count 195 (150-400) X10^3/uL Neut % (Auto) 87.9 H (50-75) % Lymph % (Auto) 7.0 L (25-40) % [place] % (Auto) 4.8 (3-14) % Eos % (Auto) 0.1 L (2-4) % Baso % (Auto) 0.2 (0-2) % Neut # (Auto) 6500 (6969-0620) /uL Lymph # (Auto) 500 L (0010-9566) /uL [place] # (Auto) 400 (0-900) /uL Eos # (Auto) 0 (0-450) /uL Baso # (Auto) 0 (0-100) /uL Sodium 139 (137-145) mmol/L Potassium 3.5 (3.4-5.1) mmol/L Chloride 103 (98-107) mmol/L Carbon Dioxide 29 (22-32) mmol/L BUN 17 (9-20) mg/dL Creatinine 1.08 (0.66-1.25) mg/dL Estimated GFR > 60 (>60) mL/min BUN/Creatinine Ratio 15.7 (6-22) Glucose 109 H (70-99) mg/dL Lactate 1.1 (0.7-2.1) mmol/L Calcium 9.3 (8.4-10.2) mg/dL Total Bilirubin 0.8 (0.2-1.3) mg/dL AST 24 (17-59) IU/L ALT 18 (<50) IU/L Alkaline Phosphatase 98 (38-126) U/L Total Protein 7.3 (6.3-8.2) g/dL Albumin 4.5 (3.5-5.0) g/dL Globulin 2.8 (1.7-4.1) g/dL Albumin/Globulin Ratio 1.6 (1.0-2.8) Lipase 35 (23-300) U/L Urine Color Yellow Urine Appearance Clear Urine pH 5.5 (4.5-8.0) Ur Specific [place] 1.025 (1.000-1.035) Urine Protein Negative (Negative) Urine Glucose (UA) Negative (Negative) g/dL Urine Ketones Trace H (NEGATIVE) Urine Occult Blood Negative (Negative) Urine Nitrate Negative (Negative) Urine Bilirubin Negative (NEGATIVE) Ur Bilirubin Confirm Negative (Negative) Urine Urobilinogen 0.2 (0.2) E.U./dL Ur Leukocyte Esterase Negative (NEGATIVE) Urine RBC 0-1/hpf (0-5/HPF) Urine WBC 0-1/hpf (0-5/HPF) Ur Squamous Epith Cells 0-1 /hpf (0-5/HPF) Urine Bacteria Occasional (0-1) (None) Urine Mucus 1+ H (Negative) Ur Culture Indicated? Cult not indicated Vol Urine Centrifuged 10ml (spun) Urine Dip Bedside Urine Glucose Negative Bedside Urine Bilirubin + 1 Bedside Urine Ketone +/- 5 Urine Specific [place] 1.025 Bedside Urine Occult Blood - Negative Bedside Urine pH 6.0 Bedside Urine Protein +/- 15 Bedside Urine Urobilinogen - Negative Bedside Urine Nitrite - Negative Bedside Urine Leukocytes - Negative Esterase ECG Data Attestation: I personally reviewed and interpreted this ECG as follows: Interpretation: Sinus rhythm rate of 70 [place] 178 QRS of 92 QTC of 382, ST depression lateral leads 2 3 and AVF. No elevation. MDM Narrative Medical decision making narrative: White count 7 hemoglobin is 13 platelets are 195, chemistries are appropriate renal function is normal glucose is 109 lactate 1.1 LFTs are negative, procalcitonin is 0.135. COVID/influenza/RSV is negative Urine shows trace ketones no nitrates leuks, 1+ mucus. Chest x-ray shows no as brisk consolidation or pleural effusion heart size within normal limits degenerative osseous changes. Patient received Tylenol. Patient is febrile nontoxic but quite weak and been able to stand or ambulate. Received home medication of carbidopa levodopa in his pramipexole. Also received Rocephin azithromycin, fluids. Spoke with tele hospitalist Dr. Boyd, who accepts for observation we will cover prophylactically antibiotics patient has had a cough recently could possibly have clinical pneumonia but without chest x-ray changes. We will also hydrate. Discussed we will give Rocephin and azithromycin. Discharge Plan Departure Patient Disposition: Admitted as Observation Clinical Impression: Fever Admit Date/Time: 11/12/24 01:25 Admit Provider: John Boyd
[2024-11-12] VITALS (7 sets, daily range): BP systolic 106–180; BP diastolic 57–88; PULSE 57–80; RESP 18–26; TEMP 36.6–37; O2SAT 94–99; BMI 33.2
[2024-11-12 00:46] LABS: Add Manual Diff / Slide Review NO; Basophils Absolute Auto 0 /uL (0-100); Basophils Percent Auto 0.2 % (0-2); Eosinophils Absolute Auto 0 /uL (0-450); Eosinophils Percent Auto 0.1 % (2-4); Hematocrit 40.7 % (41-53); Hemoglobin 13.8 g/dL (13.5-17.5); Lymphocytes Absolute Auto 500 /uL (1100-4500); Mean Corpuscular HGB Conc 33.9 % (30-36); Mean Corpuscular Hemoglobin 29.4 PG (26-34); Mean Corpuscular Volume 86.8 fL (80-100); Monocytes Absolute Auto 400 /uL (0-900); Monocytes Percent Auto 4.8 % (3-14); Neutrophils Absolute Auto 6500 /uL (1500-7000); Neutrophils Percent Auto 87.9 % (50-75); Platelet Count 195 X10^3/uL (150-400); Red Blood Cell Count 4.69 X10^6/uL (4.5-5.9); Red Cell Distribution Width 14.8 % (11.6-14.8); White Blood Cell Count 7.4 X10^3/uL (4.5-11.0)
[2024-11-12 01:00] LABS: Lactate (Lactic Acid) 1.1 mmol/L (0.7-2.1); Lipase 35 U/L (23-300)
--- NOTE | 2024-11-12 01:00 | PC.NURSE ---
pt states his sister is a doctor and she is the one that handles his medications, he normally has a list of his medications in his bag and not just the pill box
[2024-11-12 01:01] LABS: Alanine Aminotransferase 18 IU/L (<50); Albumin 4.5 g/dL (3.5-5.0); Albumin Globulin Ratio 1.6 (1.0-2.8); Alkaline Phosphatase 98 U/L (38-126); Aspartate Aminotransferase 24 IU/L (17-59); BUN Creatinine Ratio 15.7 (6-22); Bilirubin Total 0.8 mg/dL (0.2-1.3); Blood Urea Nitrogen 17 mg/dL (9-20); Calcium 9.3 mg/dL (8.4-10.2); Carbon Dioxide 29 mmol/L (22-32); Chloride 103 mmol/L (98-107); Estimated Glomerular Filt Rate > 60 mL/min (>60); Globulin 2.8 g/dL (1.7-4.1); Glucose 109 mg/dL (70-99); HEMOLYSIS < 15 (0-50); Potassium 3.5 mmol/L (3.4-5.1); Sodium 139 mmol/L (137-145); Total Protein 7.3 g/dL (6.3-8.2)
[2024-11-12 01:18] LABS: Procalcitonin 0.135 ng/mL (<0.5)
[2024-11-12] MEDS: ACETAMINOPHEN 325 MG TABLET 975 MG PO (01:26)
[2024-11-12 01:38] LABS: Influenza A - CEPHEID Flu A NEGATIVE (NEGATIVE); Influenza B - CEPHEID Flu B NEGATIVE (NEGATIVE); Respiratory Syncytial Virus Negative (Negative)
[2024-11-12 01:40] LABS: COVID-19 CEPHEID 4-PLEX PCR Negative (Negative)
--- NOTE | 2024-11-12 01:45 | PC.NURSE ---
Assisted with Dr. Boyd intake for hospital stay.
--- NOTE | 2024-11-12 02:39 | PM.HP.1 ---
History of Present Illness History of Present Illness Chief complaint: GLF lift assist Narrative: 74-year-old male with past medical history of Parkinson's disease, depression, hyperlipidemia, prostate cancer, recurrent UTIs BPH and hypertension presents with generalized weakness. Per the patient's report, the patient has been having increasing generalized weakness over the last 2 to 3 days. Today the patient was unable to get out of bed due to generalized weakness. The patient also had subjective fevers but denies any chills, nausea, vomiting, diarrhea, chest pain or shortness of breath. The patient however admitted to have some nonproductive cough with some abdominal discomfort. The patient states that he has been compliant to taking his Parkinson's disease as instructed. In our emergency room, the patient was hemodynamically stable. Labs shows WBC of 7 and UA that is negative for UTI. Chest x-ray was clear. Viral panel pending. Due to generalized weakness and possible UTI ER physician started on IV ceftriaxone and azithromycin and request for admission. 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 Prostate cancer Nodular prostate Hyperlipemia Elevated PSA Depressive disorder Parkinson's disease Surgical History H/O vasectomy Family History Family/Other Parkinson's disease Father Heart disease Mother Hyperlipidemia Hypertension Social History marital status: unmarried,single number of children: 2 Meds Home Medications and Allergies Home Medications ?Medication ?Instructions ?Recorded ?Confirmed ?Type carbidopa 25 mg-levodopa 100 mg 1 tab PO TID #60 tabs 12/01/20 11/12/24 Rx disintegrating tablet pramipexole 0.75 mg tablet 1.5 mg (2 x 0.75 mg) PO TID #90 12/01/20 11/12/24 Rx tabs amlodipine 5 mg tablet 2.5 mg PO DAILY 09/17/22 11/12/24 History hydrochlorothiazide 25 mg tablet 12.5 mg PO DAILY 09/17/22 11/12/24 History magnesium citrate 100 mg capsule 100 mg PO DAILY 01/02/23 11/12/24 History tadalafil 20 mg tablet 20 mg PO DAILY PRN sexual activity 01/02/23 11/12/24 History hydrocodone 5 mg-acetaminophen 325 1 tab PO Q8H PRN pain #12 tabs 01/28/24 11/12/24 Rx mg tablet tamsulosin 0.4 mg capsule 0.4 mg PO DAILY #90 caps 09/24/24 11/12/24 Rx cyclobenzaprine 10 mg tablet 10 mg PO BEDTIME PRN muscle spasm 11/12/24 11/12/24 History Allergies Allergy/AdvReac Type Severity Reaction Status Date / Time bee venom protein (honey bee) Allergy Verified 09/24/24 15:44 Review of Systems Review of Systems ROS: Yes All systems reviewed with the patient and are negative except as otherwise documented Exam Vital Signs (past 8 hours): - 11/11/24 22:32 11/11/24 23:00 11/11/24 23:30 Temperature 100.6 F H Pulse Rate 77 69 80 Respiratory Rate 18 25 H 25 H Blood Pressure 171/86 H Pulse Oximetry 95 95 Oxygen Delivery Method 11/12/24 00:12 11/12/24 00:12 11/12/24 00:49 Temperature Pulse Rate 71 71 Respiratory Rate 20 18 Blood Pressure 165/68 H Pulse Oximetry 97 96 Oxygen Delivery Method 11/12/24 00:49 11/12/24 01:00 11/12/24 01:00 Temperature Pulse Rate 67 Respiratory Rate 25 H Blood Pressure 138/88 161/88 H Pulse Oximetry 94 Oxygen Delivery Method Room Air 11/12/24 01:30 11/12/24 01:30 11/12/24 02:00 Temperature Pulse Rate 80 76 Respiratory Rate 26 H 18 Blood Pressure 179/80 H Pulse Oximetry Oxygen Delivery Method 11/12/24 02:00 Temperature Pulse Rate Respiratory Rate Blood Pressure 180/71 H Pulse Oximetry Oxygen Delivery Method Oxygen Delivery Method Room Air Narrative Exam Narrative: Physical Exam: GENERAL: The patient is not in any acute distressed. Awake and alert. HEENT: Nonicteric sclerae, PERRLA, EOMI. Oropharynx clear. Moist mucous membranes. Conjunctivae appear well perfused. HEART: Regular rate and rhythm without murmurs. No lower extremities edema. LUNGS: Clear to auscultation bilaterally. No wheezing, crackles or rhonchi ABDOMEN: Soft, positive bowel sounds, nontender. SKIN: No rash, no excessive bruising, petechiae, or purpura. NEUROLOGIC: AxO x 3. Cranial nerves II-XII intact without motor/sensory deficit. Objective Labs 11/11/24 00:00 11/11/24 00:00 Labs: Laboratory Results - last 24 hr 11/11/24 11/11/24 11/12/24 00:00 22:49 00:00 WBC 7.4 RBC 4.69 Hgb 13.8 Hct 40.7 L MCV 86.8 MCH 29.4 MCHC 33.9 RDW 14.8 Plt Count 195 Neut % (Auto) 87.9 H Lymph % (Auto) 7.0 L [place] % (Auto) 4.8 Eos % (Auto) 0.1 L Baso % (Auto) 0.2 Neut # (Auto) 6500 Lymph # (Auto) 500 L [place] # (Auto) 400 Eos # (Auto) 0 Baso # (Auto) 0 Sodium 139 Potassium 3.5 Chloride 103 Carbon Dioxide 29 BUN 17 Creatinine 1.08 Estimated GFR > 60 BUN/Creatinine Ratio 15.7 Glucose 109 H Lactate 1.1 Calcium 9.3 Total Bilirubin 0.8 AST 24 ALT 18 Alkaline Phosphatase 98 Total Protein 7.3 Albumin 4.5 Globulin 2.8 Albumin/Globulin Ratio 1.6 Lipase 35 Procalcitonin 0.135 Urine Color Yellow Urine Appearance Clear Urine pH 5.5 Ur Specific [place] 1.025 Urine Protein Negative Urine Glucose (UA) Negative Urine Ketones Trace H Urine Occult Blood Negative Urine Nitrate Negative Urine Bilirubin Negative Ur Bilirubin Confirm Negative Urine Urobilinogen 0.2 Ur Leukocyte Esterase Negative Urine RBC 0-1/hpf Urine WBC 0-1/hpf Ur Squamous Epith Cells 0-1 /hpf Urine Bacteria Occasional (0-1) Urine Mucus 1+ H Ur Culture Indicated? Cult not indicated Vol Urine Centrifuged 10ml (spun) SARS-CoV-2 (PCR) Negative Influenza A (RT-PCR) Flu a negative Influenza B (RT-PCR) Flu b negative RSV (PCR) Negative Assessment & Plan Assessment & Plan narrative: Possible community-acquired pneumonia. Admit the patient to medical observation. Continue empiric antibiotic with azithromycin and ceftriaxone. Though chest x-ray is clear patient's has a fever and ongoing cough. Consider repeating chest x-ray after IV fluid to see if there is any underlying pneumonia. Pending viral panel. Dehydration. IV fluid. Parkinson's disease. Resume home Parkinson's medication with PT OT. Generalized weakness. Likely from infection above. Treat as above and will consult PT OT in the morning. Hyperlipidemia. Resume home statin. BPH. Resume home Flomax. Hypertension. Monitor blood pressure and treat as needed. DVT prophylaxis heparin subcu. CODE STATUS full code. Disposition likely home in 2 days. - As the provider of this telehealth evaluation, requested by the patient's evaluating physician, I attest that I introduced myself to the patient, provided my credentials and determined that telemedicine via a real-time, 2 way interactive audio and video platform is an appropriate and effective means of providing this service. - I reviewed the patient's chart and had a discussion with the member of the patient's treatment team. - The patient and I mutually agreed with continuation of this evaluation via telemedicine. The patient consented for the telemedicine evaluation. - This virtual encounter was taken place from [place] by Dr. John Boyd. The patient was evaluated at [facility]. The encounter was approximately 35 minutes. The nurse was present during the entire time of the encounter and was able to move the stethoscope in appropriate directions. Time-Based Coding :: [TOTAL MINUTES] spent with patient and on the chart (including review of chart, obtaining history, exam, reviewing outside data, placing orders, documenting exam and treatment plan, and counseling patient) on [DATE].
[2024-11-12] MEDS: SODIUM CHLORIDE 0.9% 1,000 ML 1000 ML IV (02:47)
[2024-11-12] MEDS: cefTRIAXone 1,000 MG in SODIUM CHLORIDE 0.9% 100 ML 200 MG IV ×2 (02:50→09:31)
[2024-11-12] MEDS: AZITHROMYCIN 250 MG TABLET 500 MG PO (02:51)
[2024-11-12] MEDS: CARBIDOPA-LEVODOPA 25/100 TABLET 1 EACH PO ×4 (03:16→20:48)
[2024-11-12] MEDS: PRAMIPEXOLE 0.25 MG TABLET 1.5 MG PO ×4 (03:17→20:48)
[2024-11-12] MEDS: SODIUM CHLORIDE 0.9% 1,000 ML 75 ML IV ×2 (04:00→18:49)
[2024-11-12 07:07] LABS: Add Manual Diff / Slide Review NO; Basophils Absolute Auto 0 /uL (0-100); Basophils Percent Auto 0.4 % (0-2); Eosinophils Absolute Auto 0 /uL (0-450); Eosinophils Percent Auto 0.2 % (2-4); Hematocrit 37.8 % (41-53); Hemoglobin 12.7 g/dL (13.5-17.5); Lymphocytes Absolute Auto 600 /uL (1100-4500); Lymphocytes Percent Auto 9.1 % (25-40); Mean Corpuscular HGB Conc 33.6 % (30-36); Mean Corpuscular Hemoglobin 29.4 PG (26-34); Mean Corpuscular Volume 87.7 fL (80-100); Monocytes Absolute Auto 500 /uL (0-900); Monocytes Percent Auto 7.6 % (3-14); Neutrophils Absolute Auto 5900 /uL (1500-7000); Neutrophils Percent Auto 82.7 % (50-75); Platelet Count 156 X10^3/uL (150-400); Red Blood Cell Count 4.31 X10^6/uL (4.5-5.9); Red Cell Distribution Width 14.6 % (11.6-14.8); White Blood Cell Count 7.1 X10^3/uL (4.5-11.0)
[2024-11-12 07:14] LABS: Alanine Aminotransferase 14 IU/L (<50); Albumin 3.7 g/dL (3.5-5.0); Albumin Globulin Ratio 1.4 (1.0-2.8); Alkaline Phosphatase 77 U/L (38-126); Aspartate Aminotransferase 25 IU/L (17-59); BUN Creatinine Ratio 19.4 (6-22); Bilirubin Total 0.7 mg/dL (0.2-1.3); Blood Urea Nitrogen 20 mg/dL (9-20); Calcium 8.6 mg/dL (8.4-10.2); Carbon Dioxide 27 mmol/L (22-32); Chloride 107 mmol/L (98-107); Estimated Glomerular Filt Rate > 60 mL/min (>60); Globulin 2.6 g/dL (1.7-4.1); Glucose 108 mg/dL (70-99); HEMOLYSIS 25 (0-50); Potassium 3.5 mmol/L (3.4-5.1); Sodium 138 mmol/L (137-145); Total Protein 6.3 g/dL (6.3-8.2)
--- NOTE | 2024-11-12 07:17 | PM.HP.1 ---
History of Present Illness History of Present Illness Date Patient Seen: 11/12/24 Chief complaint: GLF lift assist Narrative: From night doctor: 74-year-old male with past medical history of Parkinson's disease, depression, hyperlipidemia, prostate cancer, recurrent UTIs BPH and hypertension presents with generalized weakness. Per the patient's report, the patient has been having increasing generalized weakness over the last 2 to 3 days. Today the patient was unable to get out of bed due to generalized weakness. The patient also had subjective fevers but denies any chills, nausea, vomiting, diarrhea, chest pain or shortness of breath. The patient however admitted to have some nonproductive cough with some abdominal discomfort. The patient states that he has been compliant to taking his Parkinson's disease as instructed. In our emergency room, the patient was hemodynamically stable. Labs shows WBC of 7 and UA that is negative for UTI. Chest x-ray was clear. Viral panel pending. Due to generalized weakness and possible UTI ER physician started on IV ceftriaxone and azithromycin and request for admission. S: He was still significantly nauseated. He was still somewhat confused as well. He lives on [facility], alone. He was had some sneezing but denies cough, or dyspnea. He also denies dysuria, or hematuria. 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 Prostate cancer Nodular prostate Hyperlipemia Elevated PSA Depressive disorder Parkinson's disease Surgical History H/O vasectomy Family History Family/Other Parkinson's disease Father Heart disease Mother Hyperlipidemia Hypertension Social History marital status: unmarried,single number of children: 2 household members: none Meds Home Medications and Allergies Home Medications ?Medication ?Instructions ?Recorded ?Confirmed ?Type carbidopa 25 mg-levodopa 100 mg 1 tab PO TID #60 tabs 12/01/20 11/12/24 Rx disintegrating tablet pramipexole 0.75 mg tablet 1.5 mg (2 x 0.75 mg) PO TID #90 12/01/20 11/12/24 Rx tabs amlodipine 5 mg tablet 2.5 mg PO DAILY 09/17/22 11/12/24 History hydrochlorothiazide 25 mg tablet 12.5 mg PO DAILY 09/17/22 11/12/24 History magnesium citrate 100 mg capsule 100 mg PO DAILY 01/02/23 11/12/24 History tadalafil 20 mg tablet 20 mg PO DAILY PRN sexual activity 01/02/23 11/12/24 History hydrocodone 5 mg-acetaminophen 325 1 tab PO Q8H PRN pain #12 tabs 01/28/24 11/12/24 Rx mg tablet tamsulosin 0.4 mg capsule 0.4 mg PO DAILY #90 caps 09/24/24 11/12/24 Rx cyclobenzaprine 10 mg tablet 10 mg PO BEDTIME PRN muscle spasm 11/12/24 11/12/24 History Allergies Allergy/AdvReac Type Severity Reaction Status Date / Time bee venom protein (honey bee) Allergy Verified 09/24/24 15:44 Review of Systems Review of Systems Narrative: All else reviewed and otherwise unremarkable except as noted in the history and physical. Exam Vital Signs (past 8 hours): - 11/11/24 23:30 11/12/24 00:12 11/12/24 00:12 Pulse Rate 80 71 Respiratory Rate 25 H 20 Blood Pressure 165/68 H Pulse Oximetry 95 97 Oxygen Delivery Method 11/12/24 00:49 11/12/24 00:49 11/12/24 01:00 Pulse Rate 71 67 Respiratory Rate 18 25 H Blood Pressure 138/88 Pulse Oximetry 96 94 Oxygen Delivery Method Room Air 11/12/24 01:00 11/12/24 01:30 11/12/24 01:30 Pulse Rate 80 Respiratory Rate 26 H Blood Pressure 161/88 H 179/80 H Pulse Oximetry Oxygen Delivery Method 11/12/24 02:00 11/12/24 02:00 Pulse Rate 76 Respiratory Rate 18 Blood Pressure 180/71 H Pulse Oximetry Oxygen Delivery Method Oxygen Delivery Method Room Air Narrative Exam Narrative: NAD, alert and oriented, fluent speech, calm. Slow to answer questions. Normocephalic skull, EOMI, anicteric sclera, symmetric pupils. Oropharynx unremarkable, no droop. Neck supple, midline trachea, no adenopathy. Lungs clear, normal rate and effort. Heart regular, no murmur gallop or rub. Abdomen is soft, non distended and non tender. Extremities are free of edema. Skin is free of rash or lesions. Joints are not swollen or deformed. Judgment appears to be abnormal. Objective Imaging Chest x-ray: Radiologist's impression: Low lung volumes. No airspace consolidation or pleural effusion on this single view study. Heart size is within normal limits. Degenerative osseous changes. Labs 11/12/24 06:41 11/12/24 06:41 Labs: Laboratory Results - last 24 hr 11/11/24 11/11/24 11/12/24 00:00 22:49 00:00 WBC 7.4 RBC 4.69 Hgb 13.8 Hct 40.7 L MCV 86.8 MCH 29.4 MCHC 33.9 RDW 14.8 Plt Count 195 Neut % (Auto) 87.9 H Lymph % (Auto) 7.0 L [place] % (Auto) 4.8 Eos % (Auto) 0.1 L Baso % (Auto) 0.2 Neut # (Auto) 6500 Lymph # (Auto) 500 L [place] # (Auto) 400 Eos # (Auto) 0 Baso # (Auto) 0 Sodium 139 Potassium 3.5 Chloride 103 Carbon Dioxide 29 BUN 17 Creatinine 1.08 Estimated GFR > 60 BUN/Creatinine Ratio 15.7 Glucose 109 H Lactate 1.1 Calcium 9.3 Total Bilirubin 0.8 AST 24 ALT 18 Alkaline Phosphatase 98 Total Protein 7.3 Albumin 4.5 Globulin 2.8 Albumin/Globulin Ratio 1.6 Lipase 35 Procalcitonin 0.135 Urine Color Yellow Urine Appearance Clear Urine pH 5.5 Ur Specific [place] 1.025 Urine Protein Negative Urine Glucose (UA) Negative Urine Ketones Trace H Urine Occult Blood Negative Urine Nitrate Negative Urine Bilirubin Negative Ur Bilirubin Confirm Negative Urine Urobilinogen 0.2 Ur Leukocyte Esterase Negative Urine RBC 0-1/hpf Urine WBC 0-1/hpf Ur Squamous Epith Cells 0-1 /hpf Urine Bacteria Occasional (0-1) Urine Mucus 1+ H Ur Culture Indicated? Cult not indicated Vol Urine Centrifuged 10ml (spun) SARS-CoV-2 (PCR) Negative Influenza A (RT-PCR) Flu a negative Influenza B (RT-PCR) Flu b negative RSV (PCR) Negative 11/12/24 06:41 WBC 7.1 RBC 4.31 L Hgb 12.7 L Hct 37.8 L MCV 87.7 MCH 29.4 MCHC 33.6 RDW 14.6 Plt Count 156 Neut % (Auto) 82.7 H Lymph % (Auto) 9.1 L [place] % (Auto) 7.6 Eos % (Auto) 0.2 L Baso % (Auto) 0.4 Neut # (Auto) 5900 Lymph # (Auto) 600 L [place] # (Auto) 500 Eos # (Auto) 0 Baso # (Auto) 0 Sodium 138 Potassium 3.5 Chloride 107 Carbon Dioxide 27 BUN 20 Creatinine 1.03 Estimated GFR > 60 BUN/Creatinine Ratio 19.4 Glucose 108 H Lactate Calcium 8.6 Total Bilirubin 0.7 AST 25 ALT 14 Alkaline Phosphatase 77 Total Protein 6.3 Albumin 3.7 Globulin 2.6 Albumin/Globulin Ratio 1.4 Lipase Procalcitonin Urine Color Urine Appearance Urine pH Ur Specific [place] Urine Protein Urine Glucose (UA) Urine Ketones Urine Occult Blood Urine Nitrate Urine Bilirubin Ur Bilirubin Confirm Urine Urobilinogen Ur Leukocyte Esterase Urine RBC Urine WBC Ur Squamous Epith Cells Urine Bacteria Urine Mucus Ur Culture Indicated? Vol Urine Centrifuged SARS-CoV-2 (PCR) Influenza A (RT-PCR) Influenza B (RT-PCR) RSV (PCR) Assessment & Plan Assessment & Plan narrative: 1. Possible community-acquired pneumonia. Admit the patient to medical observation. Continue empiric antibiotic with azithromycin and ceftriaxone. Though chest x-ray is clear patient's has a fever and ongoing cough. Consider repeating chest x-ray after IV fluid to see if there is any underlying pneumonia. Pending viral panel. 2. Dehydration. IV fluid. 3. Parkinson's disease. Resume home Parkinson's medication with PT OT. 4. Generalized weakness. Likely from infection above. Treat as above and will consult PT OT in the morning. 5. Hyperlipidemia. Resume home statin. 6. BPH. Resume home Flomax. 7. Hypertension. Monitor blood pressure and treat as needed. PLAN: -continue antibiotics and monitor cultures. -monitor mental status and fever curve. DVT prophylaxis heparin subcu. CODE STATUS full code. Disposition likely home in 2 days. Time-Based Coding :: 35 min spent with patient and on the chart (including review of chart, obtaining history, exam, reviewing outside data, placing orders, documenting exam and treatment plan, and counseling patient) on 11/12/24. Quality MIPS - Admit I confirm the patient?s Advance Care Plan is present, Code status is documented, Surrogate decision maker is in patient?s record [If Yes, STOP here]: Yes MIPS - Meds 'Current medications' to include all prescriptions, [id number] products, herbals, cannabis/cannabidiol products, and vitamin/mineral/dietary (nutritional) supplements. I have utilized all available resources to obtain, update, or review the patient?s current medications. [If Yes, STOP here]: Yes
[2024-11-12] MEDS: TAMSULOSIN 0.4 MG CAPSULE PO (09:30)
[2024-11-12] MEDS: AMLODIPINE 5 MG TABLET 2.5 MG PO (09:30)
[2024-11-12] MEDS: hydroCHLOROthiazide 25 MG TABLET 12.5 MG PO (09:30)
[2024-11-12] MEDS: HEPARIN 5,000 UNIT/ML VIAL 5000 UNIT SUBCUT ×2 (09:31→20:50)
[2024-11-12] MEDS: POTASSIUM CHLORIDE 20 MEQ TAB 40 MEQ PO (09:49)
[2024-11-12] MEDS: ONDANSETRON 4 MG/2 ML INJ IV (11:33)
--- NOTE | 2024-11-12 12:34 | CM.DANOTE ---
DCP Assessment Note: Pt is a 74yo male, resident of [facility], is admitted for UTI, pneumonia. Patient experienced a GLF due to weakness. Pt lives in a house alone. Pt's Primary Care Provider is Dr. Tim Kellogg and insurance is Medicare and [facility]. Reviewed chart and discussed with multidisciplinary team pt's medical status and initial discharge needs. Per hospitalist, PT/OT evaluations to continue along with IV abx. DCP met w/patient at bedside; introduced self and role. Patient was found in chair, alert and oriented, cooperative with assessment. Pt confirmed living situation on [facility] alone, independent at baseline. Pt expressed preference in discharge home when available. Pt has no prior history with SNF rehab or home health, does not feel this is necessary at this time. Plan: Awaiting PT/OT evaluations and recommendation for evolving discharge plans. CM team will follow closely for coordination of discharge plans. CHAN Alexandre Discharge Planning/Care Management CM Discharge Assessment Start: 11/12/24 02:18 Freq: Status: Active Protocol: Document 11/12/24 12:27 MW (Rec: 11/12/24 12:33 MW [id number]) Discharge Planning Assessment Assigned Discharge JAIRO Kincaid/Assigned Rob SolomonJohnykaren Designee Name Contact Information [phone] Advance Directives? No History Provided By Patient,Medical Record Has Patient been No admitted in last 30 days? Prior Living House Arrangements Household Members none Type of Drives own vehicle transporation used prior to admit Independent with ADL Yes 's Is patient alert and Yes oriented? Caregiver for No Another Discharge Plan Home Referrals Initiated None needed Whiteboard Updated Yes in Patient Room with name and ext. # of Regional Engineer Review Status In Process Please Provide Date 11/12/24 Initial DC Assessment Was Performed Next Review Type Continued Stay Review Document 11/12/24 12:34 MW (Rec: 11/12/24 12:34 MW [id number]) Discharge Planning Assessment Assigned Discharge JAIRO Kincaid/Assigned Rob LeomanBrother Designee Name Contact Information [phone] Advance Directives? No History Provided By Patient,Medical Record Has Patient been No admitted in last 30 days? Prior Living House Arrangements Household Members none Type of Drives own vehicle transporation used prior to admit Independent with ADL Yes 's Is patient alert and Yes oriented? Caregiver for No Another Discharge Plan Home Referrals Initiated None needed Whiteboard Updated Yes in Patient Room with name and ext. # of Regional Engineer Review Status In Process Please Provide Date 11/12/24 Initial DC Assessment Was Performed Next Review Type Continued Stay Review
--- NOTE | 2024-11-12 15:34 | PT.IIE ---
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 Drives. Social History Household Members none Living Arrangements House Number of Stairs To none Enter/Railing? Home Environment Standard Height Toilet,Walk in Shower Additional Social Pt has no family on [place] and children would not be History Comment able to come help him. He has many friends who can help him as well as drive him. Pt expresses the thought that he may not be able to live alone anymore. M2 PT-IP Current Condition Start: 11/12/24 15:06 Freq: Status: Active Protocol: Document 11/12/24 15:09 KJ (Rec: 11/12/24 15:33 KJ Laptop) Physical Therapy Current Condition Current Condition Evaluation Date 11/12/24 Treatment Diagnosis Impaired mobility, impaired balance Onset Date 11/04/24 M3 PT-IP Subjective Start: 11/12/24 15:06 Freq: Status: Active Protocol: Document 11/12/24 15:09 KJ (Rec: 11/12/24 15:33 KJ Laptop) Subjective Physical Therapy Visit Type Type Initial Evaluation Visit Start Time 14:28 Visit Stop Time 15:30 Physical Therapy Visit Comments Patient Comments pt reports no pain, but feels overall slight nausea and some difficulty moving Patient Goals to feel better M4 PT-IP Mobility and Gait Start: 11/12/24 15:06 Freq: Status: Active Protocol: Document 11/12/24 15:09 KJ (Rec: 11/12/24 15:33 KJ Laptop) PT-Bed Mobility Assessment Rolling Level of Assist Minimal Assistance Supine to Sit Supine to Sit Minimal Assistance Scooting Scooting to Edge of Moderate Assistance Bed Scooting Up and Down Moderate Assistance in Bed Gait Assessment Gait Gait Assistance Contact Guard Assist Required: Distance (Feet) 100 Assistive Devices Assistive Device Gait Belt,Front Wheeled Walker Gait Deviations General Gait Pattern Decreased Stride Length,Festinating Factors Limiting Gait Function Factors Limiting Decreased Activity Tolerance,Poor Balance Gait Function Comments Gait Comments Pt w/Parkinsons, tremor interferes with some movement. Tendency to move quickly with short stride, is able to stop quickly when asked. PT-Balance Assessment Sitting Balance and Reactions Static Sitting Normal Balance Ability Dynamic Sitting Normal Balance Ability Standing Balance and Reactions Static Standing Good Balance Ability Dynamic Standing Fair Balance Ability Comments Other Balance Tests/ tendency to lose balance in backward direction Deviations/Treatment : M5 PT-IP Objective Assessments Start: 11/12/24 15:06 Freq: Status: Active Protocol: Document 11/12/24 15:09 KJ (Rec: 11/12/24 15:33 KJ Laptop) Orientation Orientation/Cognition Level of Alertness Alert Orientation Name,Age,Birthday,Place,Situation Language Function No Deficits Noted Ability Safety Awareness Understands Safety Issues Memory Description No Deficits Noted Gross Range of Motion Upper Extremity ROM Assessment Bilaterally Impaired Impairments decreased in shoulders and wrists Lower Extremity ROM Assessment Bilaterally Impaired Impairments decreased in hips, lacks full knee ext actively Strength Comments Strength Comments strength is WNL within the available range of motion Coordination Assessment Gross Coordination Gross Coordination Impaired Muscle Tone Comments Muscle Tone Comments tremors M6 PT-IP Treatment Start: 11/12/24 15:06 Freq: Status: Active Protocol: Document 11/12/24 15:09 KJ (Rec: 11/12/24 15:33 KJ Laptop) Physical Therapy Treatment Education Education Provided Safety Other Treatments Other Treatment Discussed safety during mobility. As pt tends to lose Performed balance backward, use of a fww would be beneficial. Instructed pt on safe use of fww. M7 PT-IP Assessment and Plan Start: 11/12/24 15:06 Freq: Status: Active Protocol: Document 11/12/24 15:09 KJ (Rec: 11/12/24 15:33 KJ Laptop) PT Summary Assessment and Plan Potential Rehabilitation Good Potential Status of Condition Evolving at Evaluation Summary Impairments ROM,Balance,Bed Mobility,Transfers,Gait,Activity Tolerance Assessment Summary Pt with Parkinsons chronically while acute illness has impacted his mobility Goals Bed Mobility Goal Independent Transfer Goal Independent Gait Goal Independent Gait Distance 200 Days to Meet Goals 5 Frequency of Treatment Frequency Of Once a Day Treatment Treatment Plan Physical Therapy Bed Mobility Training,Transfer Training,Gait Training, Treatment Plan Therapeutic Exercise,Balance Retraining Recommendations To Nursing Amount of Assist 1 Person Assist Needed Discharge Recommendations PT Discharge Home with 30/12 Assist Available,Home Health Recommendations Equipment Needed for fww Home Before Discharge Transportation Needs Private Vehicle at Discharge
--- NOTE | 2024-11-12 16:17 | OT.OP.EVAL ---
Visit Care Team Role Provider Type Tim Kellogg MD Primary Care Provider Physician Specialty: Family Practice Address: [address], [address] Email: [email or web address] Kinza Lee DO Emergency Provider Physician Referring Provider Specialty: Emergency Medicine Address: [address] [place] [address], [facility] Email: [email or web address] John Boyd MD Admit Provider Physician Attending Provider Specialty: Internal Medicine Address: [address] [place] [address], [address] Email: [email or web address]
[2024-11-12] MEDS: AZITHROMYCIN 500 MG in DEXTROSE 5% IN WATER 250 ML 250 MG IV (20:51)
--- NOTE | 2024-11-13 07:21 | PM.PN.1 ---
Subjective Subjective Interval history: S: He was improved today mentally. He has his chronic Parkinson's tremor. He did sleep last night. His cognition is much faster today than yesterday. Exam Vital Signs (past 8 hours): Oxygen Delivery Method Room Air Oxygen Flow Rate 0 Narrative Exam Narrative: NAD, alert and oriented. Fluent speech. Bilateral arm pill rolling tremor. Lungs are clear, normal rate and effort. Heart is regular, no murmur gallop or rub. Abdomen is soft, non distended. Extremities are free of edema. 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 Possible community-acquired pneumonia. Improving. 2. Dehydration. Improved. 3. Parkinson's disease. Stable. 4. Generalized weakness. Active. 5. Hyperlipidemia. Resume home statin. 6. BPH. Resume home Flomax. 7. Hypertension. Monitor blood pressure and treat as needed. PLAN: -continue antibiotics and monitor cultures. All cultures remained negative. We will continue IV antibiotics for another night. -monitor mental status and fever curve. He was mental status is much better today. -continue his chronic Parkinson's medications. -discharge planning. DVT prophylaxis heparin subcu. CODE STATUS full code. Time-Based Coding :: [TOTAL MINUTES] spent with patient and on the chart (including review of chart, obtaining history, exam, reviewing outside data, placing orders, documenting exam and treatment plan, and counseling patient) on [DATE].
[2024-11-13 08:38] VITALS: BP 136/71; PULSE 47; RESP 15; TEMP 36.1; O2SAT 97
[2024-11-13] MEDS: CARBIDOPA-LEVODOPA 25/100 TABLET 1 EACH PO ×3 (09:36→20:29)
[2024-11-13] MEDS: TAMSULOSIN 0.4 MG CAPSULE PO (09:36)
[2024-11-13] MEDS: PRAMIPEXOLE 0.25 MG TABLET 1.5 MG PO ×3 (09:36→20:29)
[2024-11-13] MEDS: hydroCHLOROthiazide 25 MG TABLET 12.5 MG PO (09:36)
[2024-11-13] MEDS: AMLODIPINE 5 MG TABLET 2.5 MG PO (09:37)
[2024-11-13] MEDS: HEPARIN 5,000 UNIT/ML VIAL 5000 UNIT SUBCUT ×2 (09:38→20:29)
[2024-11-13] MEDS: cefTRIAXone 1,000 MG in SODIUM CHLORIDE 0.9% 100 ML 200 MG IV (09:39)
--- NOTE | 2024-11-13 10:45 | PT.IPTN ---
Physical Therapy Treatment Note M2 PT-IP Current Condition Start: 11/12/24 15:06 Freq: Status: Active Protocol: Document 11/12/24 15:09 KJ (Rec: 11/12/24 15:33 KJ Laptop) Physical Therapy Current Condition Current Condition Evaluation Date 11/12/24 Treatment Diagnosis Impaired mobility, impaired balance Onset Date 11/04/24 M3 PT-IP Subjective Start: 11/12/24 15:06 Freq: Status: Active Protocol: Document 11/13/24 10:45 AB (Rec: 11/13/24 12:40 AB Desktop) Subjective Physical Therapy Visit Type Type Treatment Note Visit Start Time 10:45 Visit Stop Time 11:10 Number of GAMER Visits 0 Physical Therapy Visit Comments Patient Comments agreed to do PT M4 PT-IP Mobility and Gait Start: 11/12/24 15:06 Freq: Status: Active Protocol: Document 11/13/24 10:45 AB (Rec: 11/13/24 12:40 AB Desktop) PT-Bed Mobility Assessment Supine to Sit Supine to Sit Independent PT-Transfer Assessment Sit to and From Stand Sit to and from Standby Assistance,Use of Upper Extremities Stand Equipment Transfer Assistive None Device Transfers Transfer Destination Toilet Transfer Technique ambulated Transfer Ability Level of Assist Standby Assistance,Contact Guard Assistance,1 Person Assistance,Use of Upper Extremities Comments Mobility Comments pt sitting on the chair and agreeable to do PT. pt stated that he does not have a walker and SPC and does not want to use any of these when he goes home. stated that he prefers to walk without AD and that he fine without AD. sit to stand SBA. (+) UE tremors noted. pt ambulated ~ 200 ft without AD in the hallway SBA to occasional CGA and cues for safety. presents with unsteady gait but without LOB. cued for upright posture. pt ambulated back to his room and sat on EOB . completed bed mobility SBA. pt requested to use the toilet. ambulated to the toilet SBA to CGA. able to use the toilet without assistance. ambulated to the sink SBA to CGA and able to maintain standing balance SBA while completing handwashing. pt ambulated to the chair SBA. positioned pt on the chair. call light and table placed within reach. Gait Assessment Gait Gait Assistance Standby Assistance,Contact Guard Assist Required: Distance (Feet) 200 Able to Maintain Yes Weight Bearing Status During Gait Assistive Devices Assistive Device None,Gait Belt Orthotic/Prosthetic No Devices or Brace: Gait Deviations General Gait Pattern Ataxic,Decreased Stride Length,Decreased Feet Clearance ,Wide Based Gait Factors Limiting Gait Function Factors Limiting Abnormal Tonal Influences,Decreased Activity Tolerance, Gait Function Decreased Strength,Difficulty Following Directions, Incoordination,Limited Range of Motion,Poor Balance, Poor Safety Awareness M5 PT-IP Objective Assessments Start: 11/12/24 15:06 Freq: Status: Active Protocol: Document 11/12/24 15:09 KJ (Rec: 11/12/24 15:33 KJ Laptop) Orientation Orientation/Cognition Level of Alertness Alert Orientation Name,Age,Birthday,Place,Situation Language Function No Deficits Noted Ability Safety Awareness Understands Safety Issues Memory Description No Deficits Noted Gross Range of Motion Upper Extremity ROM Assessment Bilaterally Impaired Impairments decreased in shoulders and wrists Lower Extremity ROM Assessment Bilaterally Impaired Impairments decreased in hips, lacks full knee ext actively Strength Comments Strength Comments strength is WNL within the available range of motion Coordination Assessment Gross Coordination Gross Coordination Impaired Muscle Tone Comments Muscle Tone Comments tremors M6 PT-IP Treatment Start: 11/12/24 15:06 Freq: Status: Active Protocol: Document 11/13/24 10:45 AB (Rec: 11/13/24 12:40 AB Desktop) Physical Therapy Treatment Education Education Provided Safety M7 PT-IP Assessment and Plan Start: 11/12/24 15:06 Freq: Status: Active Protocol: Document 11/13/24 10:45 AB (Rec: 11/13/24 12:40 AB Desktop) PT Summary Assessment and Plan Potential Rehabilitation Fair Potential Summary Impairments Pain,ROM,Strength,Balance,Coordination,Sensation,Tone, Cognition,Bed Mobility,Transfers,Gait,Activity Tolerance Progress Towards Slow Progress due to Medical Issues,Slow Progress - Goals Other Assessment Summary pt requiring SBA to CGA with mobility without AD. pt has dx of Parkinson's dse affecting current mobility level. pt lives alone and will need assistance at home . pt will also benefit from HHPT vs outpt PT. Goals Bed Mobility Goal Independent Transfer Goal Independent Gait Goal Independent Gait Distance 200 Days to Meet Goals 5 Frequency of Treatment Frequency Of Once a Day Treatment Treatment Plan Physical Therapy Bed Mobility Training,Transfer Training,Gait Training, Treatment Plan Therapeutic Exercise,Balance Retraining Precautions Other Precautions fall risk Recommendations To Nursing Amount of Assist 1 Person Assist Needed Discharge Recommendations PT Discharge Home with Assistance,Home Health,Outpatient PT Recommendations Transportation Needs Private Vehicle at Discharge - PT assist 1
[2024-11-13] MEDS: SODIUM CHLORIDE 0.9% 1,000 ML 75 ML IV (10:51)
[2024-11-13 20:25] VITALS: BP 174/85; PULSE 52; RESP 18; TEMP 36.4; O2SAT 98
[2024-11-13] MEDS: AZITHROMYCIN 500 MG in DEXTROSE 5% IN WATER 250 ML 250 MG IV (21:46)
[2024-11-13] MEDS: HYDROCODONE/ACET 5/325 TABLET 1 TAB PO (22:25)
[2024-11-13] MEDS: CYCLOBENZAPRINE 10 MG TABLET PO (23:07)
[2024-11-13] MEDS: OXYCODONE IR 10 MG TABLET PO (23:26)
[2024-11-14 04:39] LABS: Hematocrit 33.9 % (41-53); Hemoglobin 11.9 g/dL (13.5-17.5); Mean Corpuscular Hemoglobin 29.5 PG (26-34); Mean Corpuscular Volume 84.4 fL (80-100); Platelet Count 159 X10^3/uL (150-400); Red Blood Cell Count 4.02 X10^6/uL (4.5-5.9); Red Cell Distribution Width 14.4 % (11.6-14.8); White Blood Cell Count 3.8 X10^3/uL (4.5-11.0)
[2024-11-14 04:46] LABS: BUN Creatinine Ratio 14.9 (6-22); Blood Urea Nitrogen 14 mg/dL (9-20); Carbon Dioxide 26 mmol/L (22-32); Chloride 103 mmol/L (98-107); Estimated Glomerular Filt Rate > 60 mL/min (>60); Glucose 107 mg/dL (70-99); HEMOLYSIS < 15 (0-50); Potassium 3.4 mmol/L (3.4-5.1); Sodium 135 mmol/L (137-145)
[2024-11-14 08:24] VITALS: BP 139/68; PULSE 45; RESP 15; TEMP 35.8; O2SAT 98
[2024-11-14] MEDS: POTASSIUM CHLORIDE 20 MEQ TAB 40 MEQ PO (09:48)
[2024-11-14] MEDS: AMLODIPINE 5 MG TABLET 2.5 MG PO (09:49)
[2024-11-14] MEDS: CARBIDOPA-LEVODOPA 25/100 TABLET 1 EACH PO (09:50)
[2024-11-14] MEDS: PRAMIPEXOLE 0.25 MG TABLET 1.5 MG PO (09:51)
[2024-11-14] MEDS: hydroCHLOROthiazide 25 MG TABLET 12.5 MG PO (09:51)
[2024-11-14] MEDS: cefTRIAXone 1,000 MG in SODIUM CHLORIDE 0.9% 100 ML 200 MG IV (09:52)
[2024-11-14] MEDS: HEPARIN 5,000 UNIT/ML VIAL 5000 UNIT SUBCUT (09:58)
[2024-11-14] MEDS: TAMSULOSIN 0.4 MG CAPSULE PO (09:58)
--- NOTE | 2024-11-14 12:02 | PM.DS.1 ---
History of Present Illness History of Present Illness Chief complaint: GLF lift assist Narrative: From night doctor: 74-year-old male with past medical history of Parkinson's disease, depression, hyperlipidemia, prostate cancer, recurrent UTIs BPH and hypertension presents with generalized weakness. Per the patient's report, the patient has been having increasing generalized weakness over the last 2 to 3 days. Today the patient was unable to get out of bed due to generalized weakness. The patient also had subjective fevers but denies any chills, nausea, vomiting, diarrhea, chest pain or shortness of breath. The patient however admitted to have some nonproductive cough with some abdominal discomfort. The patient states that he has been compliant to taking his Parkinson's disease as instructed. In our emergency room, the patient was hemodynamically stable. Labs shows WBC of 7 and UA that is negative for UTI. Chest x-ray was clear. Viral panel pending. Due to generalized weakness and possible UTI ER physician started on IV ceftriaxone and azithromycin and request for admission. S: He was still significantly nauseated. He was still somewhat confused as well. He lives on [facility], [facility]. He was had some sneezing but denies cough, or dyspnea. He also denies dysuria, or hematuria. Discharge Providers Provider Date of admission: 11/12/24 01:25 Discharge Date: 11/14/24 Primary care physician: Tim Kellogg MD Consults: 11/12/24 01:17 Consult to Occupational Therapy Evaluate & Treat Comment: Physician Instructions: Evaluate and treat Consult to Physical Therapy Evaluate & Treat Comment: Physician Instructions: Evaluate and Treat Discharge provider: Camden Suarez MD Summary Hospital Course Discharge Diagnosis: 1. Possible community-acquired pneumonia and weakness. Improving. 2. Dehydration. Improved. 3. Parkinson's disease. Stable. 4. Generalized weakness. Active. 5. Hyperlipidemia. Stable. 6. BPH. Stable. 7. Hypertension. Stable. 8. Prostate cancer, stable. Hospital Course: He was admitted with weakness and confusion. There was initially a concern for pneumonia versus urinary tract infection. He was started on IV antibiotics. He had a negative urine analysis. He does have a chronic history of Parkinson's and his medications have been stable recently. The patient did improve on antibiotics and really had no respiratory symptoms. Blood cultures remained negative. The patient returned to baseline function on November 14 and he felt comfortable returning home. He was on [facility], alone. He does have primary care there, and his neurologist is in [place]. He has been going to physical therapy outpatient twice a week and feels that he was strong enough to continue to do this and we will follow up with physical therapy in his PCP this week. Status at Discharge Cognitive/behavioral status at discharge: oriented Functional status at discharge: uses cane/walker Overall status at discharge: patient is back to baseline Time Spent with Patient Time spent: Greater than 30 minutes Exam Vital Signs (past 8 hours): - 11/14/24 08:24 Temperature 96.5 F L Pulse Rate 45 L Respiratory Rate 15 Blood Pressure 139/68 Pulse Oximetry 98 Oxygen Flow Rate 0 Oxygen Delivery Method Room Air Oxygen Flow Rate 0 Narrative Exam Narrative: NAD, alert and oriented. Fluent speech. Lungs are clear, normal rate and effort. Heart is regular, no murmur gallop or rub. Abdomen is soft, non distended. Extremities are free of edema. Mild masked facies, pill-rolling tremor both arms. Objective Imaging Chest x-ray: Radiologist's impression: Low lung volumes. No airspace consolidation or pleural effusion on this single view study. Heart size is within normal limits. Degenerative osseous changes. 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 Possible community-acquired pneumonia and weakness. Improving. 2. Dehydration. Improved. Plan of Treatment: Stable for discharge home, he will return to [facility]. We will continue antibiotics for an additional 4 days, cefdinir 300 mg b.i.d.. He will follow up with the primary care this week and continue physical therapy outpatient 2 times a week. Discharge Plan Discharge Plan Patient Disposition: Home Provider Discharge Comment: Much improved, stable for discharge home. He was able to go to outpatient physical therapy which he already does twice a week. Discharge orders & Medications Prescriptions: New cefdinir 300 mg capsule 300 mg PO BID Qty: 6 0RF Continued carbidopa-levodopa 25-100 mg tablet,disintegrating 1 tab PO TID Qty: 60 0RF pramipexole 0.75 mg tablet 1.5 mg PO TID Qty: 90 0RF hydrocodone-acetaminophen 5-325 mg tablet 1 tab PO Q8H PRN (Reason: pain) Qty: 12 0RF cyclobenzaprine 10 mg tablet 10 mg PO BEDTIME PRN (Reason: muscle spasm) Patient Comments: takes at night for restless legs amlodipine 5 mg tablet 2.5 mg PO DAILY hydrochlorothiazide 25 mg tablet 12.5 mg PO DAILY magnesium citrate 100 mg capsule 100 mg PO DAILY tadalafil 20 mg tablet 20 mg PO DAILY PRN (Reason: sexual activity) Rx Instructions: administer approximately 30min before sexual activity; do not use more than 1 dose per 24hrs tamsulosin 0.4 mg capsule 0.4 mg PO DAILY Qty: 90 3RF Follow up/Referrals: iTm Kellogg MD [Primary Care Provider, Family Practice] Discharge Health Status Multidrug resistant organism: No MDRO Diet/Activity/Treatments Diet: Regular Skin/Wound/Dressing Care Report to your healthcare provider any signs of infection, such as:: chills, fever Visit Report/Discharge Packet Instructions: DI for Pneumonia -- Adult Stand Alone Forms: Patient Portal/API Discharge Data Primary Care Provider: Tim Kellogg Attending Provider: John Boyd Admit Date/Time: 11/12/24 01:25
--- NOTE | 2024-11-14 13:52 | CM.DPNOTE ---
DCP note REPORTING DEVELOPER reviewed EMR per provider, cleared to dc home today. does not need HH. REPORTING DEVELOPER met with pt in room. introduced self and role. confirmed not interested in HH at this time. [place] will [place], someone will come pick him up from the ferry. denies other CM needs or questions at this time. [place] [address]. REPORTING DEVELOPER spoke with Chirag cummings. 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 REPORTING DEVELOPER completed taxi form. gave copy to CANDIDO Jhaveri, updated INDIVIDUALIZED EDUCATION PLAN AIDE/RN on plan. INDIVIDUALIZED EDUCATION PLAN AIDE to help pt to ED Entrance at 1430. P: dc today with taxi to ferry to transport home. no CM needs at this time. will continue to follow as needed JAIRO Escobar
--- NOTE | 2024-11-14 14:03 | PC.NURSE ---
Addendum entered by Zuleika Carver R.N. 11/14/24 14:58: Pt escorted by staff via W/c to waiting vehicle D/C in stable status. Original Note: Pt A/O , sitting in chair all morning, Denies discomfort, Orders for D/C received; SL D/C'd intact; Home instructions given; awaiting transportation
== END 2024-11-14 14:20 | disposition home or self-care (01) | DRG 195 ==
LOC: ED 23:20 → AC 11-12 01:26
PROVIDERS: Hospitalist; Admitting Provider Internal Medicine; Emergency Provider Emergency Medicine; PCP Family Medicine; Referring Provider Emergency Medicine; Visit Provider Internal Medicine
DX: J18.9 Pneumonia, unspecified organism (principal); G20.A1 Parkinson's disease without dyskinesia, without mention of fluctuations; E86.0 Dehydration; R53.1 Weakness; E78.5 Hyperlipidemia, unspecified; N40.0 Benign prostatic hyperplasia without lower urinary tract symptoms; I10 Essential (primary) hypertension; C61 Malignant neoplasm of prostate
CPT/HCPCS: 0241U; 36415; 71045; 80048; 80053; 81001; 81003; 83605; 83690; 84145; 85025; 85027; 87040; 87086; 93005; 96374; 96375; 97116; 97162; 97165; 97530; 99283; 99284; G0378; J0696; J1644; J2405

== ENCOUNTER 2025-01-19 07:49 | Emergency (ER) | payer MEDICARE, OTHER, SELFPAY ==
[2024-11-12 03:21] VITALS: BMI 33.2
[2025-01-19] VITALS (25 sets, daily range): BP systolic 115–182; BP diastolic 58–75; PULSE 51–73; RESP 14–16; TEMP 36.9; O2SAT 91–100; BMI 33.2
--- NOTE | 2025-01-19 07:54 | ED.FALL ---
HPI - Fall General Chief Complaint: Back Pain/Injury Stated Complaint: Fall/back pain Time Seen by Provider: 01/19/25 07:53 History of Present Illness HPI Narrative: Patient brought in by ambulance for ground level fall. Patient has history of Parkinson's and recent TIA. Patient is on aspirin. At 2:30 a.m. this morning at home, he lives alone, who was trying to swat at a moth. Lost his balance and twisted and landed on the ground, complaining of right flank pain. He did bump his head against the wall but no loss of consciousness. Patient received 2 mg of Dilaudid by EMS prior to arrival. Patient in no distress. Chest back abdomen exposed. Related Data Home Medications ?Medication ?Instructions ?Recorded ?Confirmed amlodipine 5 mg tablet 2.5 mg PO DAILY 09/17/22 11/12/24 hydrochlorothiazide 25 mg tablet 12.5 mg PO DAILY 09/17/22 11/12/24 magnesium citrate 100 mg capsule 100 mg PO DAILY 01/02/23 11/12/24 tadalafil 20 mg tablet 20 mg PO DAILY PRN sexual activity 01/02/23 11/12/24 cyclobenzaprine 10 mg tablet 10 mg PO BEDTIME PRN muscle spasm 11/12/24 11/12/24 Previous Rx's ?Medication ?Instructions ?Recorded carbidopa 25 mg-levodopa 100 mg 1 tab PO TID #60 tabs 12/01/20 disintegrating tablet pramipexole 0.75 mg tablet 1.5 mg (2 x 0.75 mg) PO TID #90 12/01/20 tabs hydrocodone 5 mg-acetaminophen 325 1 tab PO Q8H PRN pain #12 tabs 01/28/24 mg tablet tamsulosin 0.4 mg capsule 0.4 mg PO DAILY #90 caps 09/24/24 cefdinir 300 mg capsule 300 mg PO BID #6 caps 11/14/24 Allergies Allergy/AdvReac Type Severity Reaction Status Date / Time bee venom protein (honey bee) Allergy Verified 01/19/25 07:55 Review of Systems Review of Systems Narrative: GENERAL: Negative chills, fatigue, malaise, fever, sweats. 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 No bruising skin abrasion skull tenderness scalp tenderness EYES: Pupils equal round ENT: Mucous membranes moist. NECK: Trachea midline. No midline tenderness or step-off of the cervical thoracic or lumbar spine. CARDIOVASCULAR: Regular rate and rhythm RESPIRATORY: Clear to auscultation. Breath sounds equal bilaterally. No wheezes, rales, or rhonchi. There is reproducible right lower lateral rib and posterior rib/CVA tenderness. No crepitus felt. No abrasion or bruising seen. Patient log rolled to the left. Clear and equal lung sounds bilaterally. Does have pain with deep breath. And movement. GASTROINTESTINAL: Abdomen soft, non-tender EXTREMITIES: No gross deformities. BACK: No flank tenderness. NEURO: AOx4. Clear speech SKIN: Warm and dry PSYCH: Not anxious, is cooperative Initial Vital Signs Initial Vital Signs: Vital Signs Pulse Rate 59 L 01/19/25 07:53 Pulse Oximetry 92 01/19/25 07:53 Course Orders Ordered: ED Orders 01/19/25 07:56 CT Trauma Chest Abdomen Pelvis Stat 01/19/25 07:57 CT cervical spine wo con Stat CT head/brain wo con Stat 01/19/25 08:03 Complete Blood Count AUTO DIFF Stat Comprehensive Metabolic Panel Stat Discontinued Medications Sodium Chloride (Normal Saline 0.9%) 1,000 mls @ 1,000 mls/hr IV BOLUS ONE Stop: 01/19/25 08:56 Last Infusion: 01/19/25 10:54 Dose: Infused Documented By: Admin: 01/19/25 09:07 Dose: 1,000 mls/hr Documented By: BT Vital Signs Vital signs: Vital Signs - 8 hr 01/19/25 09:00 01/19/25 09:00 01/19/25 09:30 Pulse Rate 56 L 71 Respiratory Rate Blood Pressure 158/72 H Pulse Oximetry 97 99 Oxygen Delivery Method Nasal Cannula Oxygen Flow Rate 2 01/19/25 09:30 01/19/25 09:47 01/19/25 10:01 Pulse Rate 57 L Respiratory Rate Blood Pressure 168/75 H 166/74 H Pulse Oximetry 95 Oxygen Delivery Method Oxygen Flow Rate 01/19/25 10:12 01/19/25 10:30 01/19/25 10:31 Pulse Rate 56 L 53 L Respiratory Rate Blood Pressure 182/74 H Pulse Oximetry 100 99 Oxygen Delivery Method Oxygen Flow Rate 01/19/25 10:31 01/19/25 10:56 01/19/25 10:57 Pulse Rate 54 L Respiratory Rate Blood Pressure 139/62 Pulse Oximetry 98 98 Oxygen Delivery Method Oxygen Flow Rate 01/19/25 11:01 01/19/25 11:31 01/19/25 12:00 Pulse Rate Respiratory Rate Blood Pressure 175/63 H 127/61 115/59 L Pulse Oximetry Oxygen Delivery Method Nasal Cannula Oxygen Flow Rate 3 01/19/25 12:24 01/19/25 12:30 01/19/25 12:30 Pulse Rate 52 L 51 L Respiratory Rate Blood Pressure 135/61 Pulse Oximetry 98 98 Oxygen Delivery Method Oxygen Flow Rate 01/19/25 13:00 01/19/25 13:00 01/19/25 13:30 Pulse Rate 51 L 57 L Respiratory Rate Blood Pressure 125/58 L Pulse Oximetry 91 93 Oxygen Delivery Method Oxygen Flow Rate 01/19/25 13:31 01/19/25 13:31 01/19/25 15:13 Pulse Rate 53 L 58 L Respiratory Rate 14 Blood Pressure 148/70 H 180/72 H Pulse Oximetry 94 97 Oxygen Delivery Method Room Air Oxygen Flow Rate MDM - Fall Lab Data 01/19/25 08:03 01/19/25 08:03 Labs: Lab Results 01/19/25 Range/Units 08:03 WBC 5.9 (4.5-11.0) X10^3/uL RBC 4.15 L (4.5-5.9) X10^6/uL Hgb 12.5 L (13.5-17.5) g/dL Hct 35.9 L (41-53) % MCV 86.6 (80-100) fL MCH 30.1 (26-34) PG MCHC 34.7 (30-36) % RDW 14.3 (11.6-14.8) % Plt Count 189 (150-400) X10^3/uL Neut % (Auto) 67.4 (50-75) % Lymph % (Auto) 20.4 L (25-40) % [place] % (Auto) 10.3 (3-14) % Eos % (Auto) 1.2 L (2-4) % Baso % (Auto) 0.7 (0-2) % Neut # (Auto) 3900 (9067-2720) /uL Lymph # (Auto) 1200 (3656-3258) /uL [place] # (Auto) 600 (0-900) /uL Eos # (Auto) 100 (0-450) /uL Baso # (Auto) 0 (0-100) /uL Sodium 139 (137-145) mmol/L Potassium 4.1 (3.4-5.1) mmol/L Chloride 106 (98-107) mmol/L Carbon Dioxide 28 (22-32) mmol/L BUN 23 H (9-20) mg/dL Creatinine 1.00 (0.66-1.25) mg/dL Estimated GFR > 60 (>60) mL/min BUN/Creatinine Ratio 23.0 H (6-22) Glucose 101 H (70-99) mg/dL Calcium 9.2 (8.4-10.2) mg/dL Total Bilirubin 0.3 (0.2-1.3) mg/dL AST 29 (17-59) IU/L ALT 10 (<50) IU/L Alkaline Phosphatase 92 (38-126) U/L Total Protein 6.9 (6.3-8.2) g/dL Albumin 4.3 (3.5-5.0) g/dL Globulin 2.6 (1.7-4.1) g/dL Albumin/Globulin Ratio 1.7 (1.0-2.8) Imaging Data CT scan - head: Radiologist's Impression: [address] [address] [address] Scan Report Signed Patient: Laureano Solomon MR#: [id number] : 1950 Acct:[id number] Age/Sex: 74 / M Date of Service: 01/19/25 Loc: ED Accession Number: [id number] Procedure: CT head/brain wo con Ordering Provider: Tim Aceves MD PROCEDURE: CT HEAD/BRAIN WO CON INDICATIONS: Trauma TECHNIQUE: Noncontrast 4.5 mm thick angled axial sections acquired from the foramen magnum to the vertex, with coronal and sagittal reformats. For radiation dose reduction, the following was used: automated exposure control, adjustment of mA and/or kV according to patient size. COMPARISON: None. FINDINGS: Image quality: Diagnostic. CSF spaces: Basal cisterns are patent. No extra-axial fluid collections. The ventricles are symmetric in size and shape. Brain: No acute intracranial hemorrhage or mass effect. There is cerebral volume loss, with resultant ventricular and sulcal prominence. There are periventricular and deep white matter chronic small vessel ischemic changes. There is intracranial internal carotid artery atherosclerosis. Skull and face: Calvarium and visualized facial bones appear intact, without suspicious lesions. Sinuses: Visualized sinuses and mastoids are clear. IMPRESSION: No acute intracranial pathology. Approved by: Edward Ramos M.D. on 01/19/2025 at 8:27 CT - cervical spine: Radiologist's Impression: [address] [address] [address] Scan Report Signed Patient: Laureano Solomon MR#: [id number] : 1950 Acct:[id number] Age/Sex: 74 / M Date of Service: 01/19/25 Loc: ED Accession Number: [id number] Procedure: CT cervical spine wo con Ordering Provider: Tim Aceves MD PROCEDURE: CT CERVICAL SPINE WO CON INDICATIONS: Trauma TECHNIQUE: Noncontrast 3 mm thick sections acquired from the skull base to the T3 level. Sagittal and coronal reformats were then constructed. For radiation dose reduction, the following was used: automated exposure control, adjustment of mA and/or kV according to patient size. COMPARISON: None. FINDINGS: Image quality: Mild patient motion. Diagnostic information is obtained.. Bones: No acute fractures or dislocations. Visualized superior ribs are intact. Multilevel disc space narrowing and degenerative endplate changes. Multilevel uncovertebral joint and facet hypertrophy. Soft tissues: Prevertebral soft tissues are normal in thickness. No paravertebral hematomas. No apical pneumothoraces. Subcentimeter right thyroid nodule does not require dedicated imaging follow-up. IMPRESSION: No acute displaced fracture or traumatic subluxation. Approved by: Edward Ramos M.D. on 01/19/2025 at 8:31 CT chest abdomen and pelvis: Radiologist's Impression: [place] [address] CT Scan Report Signed Patient: Laureano Solomon MR#: [id number] : 1950 Acct:[id number] Age/Sex: 74 / M Date of Service: 01/19/25 Loc: ED Accession Number: [id number] Procedure: CT Trauma Chest Abdomen Pelvis Ordering Provider: Tim Aceves MD PROCEDURE: CT TRAUMA CHEST ABDOMEN PELVIS INDICATIONS: fall last night TECHNIQUE: After the administration of intravenous contrast, 5 mm thick sections acquired from the lung apices to the symphysis. 2.5 mm thick coronal and sagittal reformats were acquired. Additional 7 mm thick coronal maximum intensity projection (MIP) reformats acquired through the lungs. Optional 10-minute delayed imaging may be performed from the kidneys to the bladder. For radiation dose reduction, the following was used: automated exposure control, adjustment of mA and/or kV according to patient size. COMPARISON: None. FINDINGS: Image quality: Diagnostic. CHEST: Lower Neck: No enlarged lymph nodes. Thyroid: No thyroid nodules which require sonographic evaluation. Axillae: No enlarged lymph nodes. Chest Wall: No subcutaneous gas. Lungs and Pleura: No pulmonary contusions or lacerations. No acute airspace opacities. No pneumothorax or hemothorax. Mediastinum: No mediastinal hematomas. Heart size is normal. No pericardial effusion. Severe LAD calcifications. Thoracic aorta and pulmonary arteries demonstrate normal size and enhancement. No mediastinal or hilar adenopathy. Esophagus is normal in caliber. No hiatal hernia. ABDOMEN: Liver: No lacerations. Gallbladder: No radiopaque gallstones or wall thickening. Biliary ducts: No biliary dilation. Pancreas: Homogenous enhancement. Spleen: Homogenous enhancement without laceration or hematoma. Adrenal Glands: Symmetric enhancement. Kidneys and Ureters: Symmetric enhancement. No hydronephrosis. No solid mass. No complex renal cystic lesion which requires follow up. Punctate nonobstructing right lower pole renal stone. Stomach and Bowel: Normal colonic caliber, without significant wall thickening. Peritoneum: No abnormal intraperitoneal fluid. No free air. Ventral Wall: Fat containing inguinal hernia. Abdominal Nodes: No retroperitoneal or mesenteric adenopathy by size criteria. Vessels: Aorta and inferior vena cava are normal in size. PELVIS: Pelvic Organs: Prostate implant seeds.. Bladder: Normal thickness. Pelvic Nodes: No enlarged lymph nodes. Miscellaneous: No inguinal hernias are seen. Bones: Pelvic ring and hip joints appear intact. No displaced rib fractures. IMPRESSION: No evidence of traumatic injury to the chest, abdomen or pelvis. Severe coronary artery calcifications. Dictated by: Greyson Muhammad M.D. on 01/19/2025 at 8:42 Approved by: Greyson Muhammad M.D. on 01/19/2025 at 8:46 [facility] Narrative Medical decision making narrative: Patient brought in by ambulance for ground level fall. Patient has history of Parkinson's and recent TIA. Patient is on aspirin. At 2:30 a.m. this morning at home, he lives alone, who was trying to swat at a moth. Lost his balance and twisted and landed on the ground, complaining of right flank pain. He did bump his head against the wall but no loss of consciousness. Patient received 2 mg of Dilaudid by EMS prior to arrival. Patient in no distress. Chest back abdomen exposed. MDM After history and exam, CBC CMP CT head cervical spine chest abdomen pelvis soa integration architect normal saline Differential considered: Includes but not limited to rib fracture pneumothorax rib contusion Medical records reviewed: No recent visit for this complaint Lab Test results independently reviewed as above. Pertinent findings: WBC 5.9 hemoglobin 12.5 sodium 139 potassium 4.1 BUN 23 GFR greater than 60 glucose 101 Imaging studies independently reviewed: CT head cervical spine chest abdomen pelvis no acute finding Consultations: None indicated at this time Re-evaluations: 10:00 a.m.. Updated patient results. He states he did not get much sleep last night and that is why he is very tired and sleeping. In addition patient did receive Dilaudid by EMS. We will wait for patient to feel more rested before discharging home. 3:01 p.m.. Patient is awake alert oriented x4. Pain is controlled. Return precautions reviewed with patient. 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 Discussion: Appropriate for discharge home exam is reassuring. Return precautions reviewed with patient. He desires discharge home. Diagnosis: Right rib contusion Discharge Plan Departure Patient Disposition: Home Clinical Impression: Contusion of rib on right side Qualifiers: Encounter type: initial encounter Qualified Code(s): S29.8XXA - Other specified injuries of thorax, initial encounter Instructions: DI for Rib Contusion Activity Restrictions/Additional Instructions: Your exam and laboratory studies are reassuring. No broken bones or lung injury seen on imaging studies. No driving operating machinery today as you have been given pain medication. You may continue home medications. Return if worse if any questions or concerns. See family doctor in a week for re-evaluation. You have likely bruised your ribs from the fall. Prescriptions: No Action carbidopa-levodopa 25-100 mg tablet,disintegrating 1 tab PO TID Qty: 60 0RF pramipexole 0.75 mg tablet 1.5 mg PO TID Qty: 90 0RF hydrocodone-acetaminophen 5-325 mg tablet 1 tab PO Q8H PRN (Reason: pain) Qty: 12 0RF cyclobenzaprine 10 mg tablet 10 mg PO BEDTIME PRN (Reason: muscle spasm) Patient Comments: takes at night for restless legs cefdinir 300 mg capsule 300 mg PO BID Qty: 6 0RF amlodipine 5 mg tablet 2.5 mg PO DAILY hydrochlorothiazide 25 mg tablet 12.5 mg PO DAILY magnesium citrate 100 mg capsule 100 mg PO DAILY tadalafil 20 mg tablet 20 mg PO DAILY PRN (Reason: sexual activity) Rx Instructions: administer approximately 30min before sexual activity; do not use more than 1 dose per 24hrs tamsulosin 0.4 mg capsule 0.4 mg PO DAILY Qty: 90 3RF Referrals: Tim Kellogg MD [Primary Care Provider, Family Practice] Stand Alone Forms: Patient Portal/API
--- NOTE | 2025-01-19 07:57 | DI.CT.S_ITS ---
PROCEDURE: CT HEAD/BRAIN WO CON INDICATIONS: Trauma TECHNIQUE: Noncontrast 4.5 mm thick angled axial sections acquired from the foramen magnum to the vertex, with coronal and sagittal reformats. For radiation dose reduction, the following was used: automated exposure control, adjustment of mA and/or kV according to patient size. COMPARISON: None. FINDINGS: Image quality: Diagnostic. CSF spaces: Basal cisterns are patent. No extra-axial fluid collections. The ventricles are symmetric in size and shape. Brain: No acute intracranial hemorrhage or mass effect. There is cerebral volume loss, with resultant ventricular and sulcal prominence. There are periventricular and deep white matter chronic small vessel ischemic changes. There is intracranial internal carotid artery atherosclerosis. Skull and face: Calvarium and visualized facial bones appear intact, without suspicious lesions. Sinuses: Visualized sinuses and mastoids are clear. IMPRESSION: No acute intracranial pathology. Approved by: Edward Ramos M.D. on 01/19/2025 at 8:27
--- NOTE | 2025-01-19 07:57 | DI.CT.S_ITS ---
PROCEDURE: CT CERVICAL SPINE WO CON INDICATIONS: Trauma TECHNIQUE: Noncontrast 3 mm thick sections acquired from the skull base to the T3 level. Sagittal and coronal reformats were then constructed. For radiation dose reduction, the following was used: automated exposure control, adjustment of mA and/or kV according to patient size. COMPARISON: None. FINDINGS: Image quality: Mild patient motion. Diagnostic information is obtained.. Bones: No acute fractures or dislocations. Visualized superior ribs are intact. Multilevel disc space narrowing and degenerative endplate changes. Multilevel uncovertebral joint and facet hypertrophy. Soft tissues: Prevertebral soft tissues are normal in thickness. No paravertebral hematomas. No apical pneumothoraces. Subcentimeter right thyroid nodule does not require dedicated imaging follow-up. IMPRESSION: No acute displaced fracture or traumatic subluxation. Approved by: Edward Ramos M.D. on 01/19/2025 at 8:31
[2025-01-19 08:10] LABS: Add Manual Diff / Slide Review NO; Hematocrit 35.9 % (41-53); Hemoglobin 12.5 g/dL (13.5-17.5); Lymphocytes Absolute Auto 1200 /uL (1100-4500); Mean Corpuscular HGB Conc 34.7 % (30-36); Mean Corpuscular Hemoglobin 30.1 PG (26-34); Mean Corpuscular Volume 86.6 fL (80-100); Platelet Count 189 X10^3/uL (150-400)
[2025-01-19 08:21] LABS: Alanine Aminotransferase 10 IU/L (<50); Albumin 4.3 g/dL (3.5-5.0); Albumin Globulin Ratio 1.7 (1.0-2.8); Alkaline Phosphatase 92 U/L (38-126); Blood Urea Nitrogen 23 mg/dL (9-20); Calcium 9.2 mg/dL (8.4-10.2); Carbon Dioxide 28 mmol/L (22-32); Chloride 106 mmol/L (98-107); Estimated Glomerular Filt Rate > 60 mL/min (>60); Globulin 2.6 g/dL (1.7-4.1); Glucose 101 mg/dL (70-99); HEMOLYSIS < 15 (0-50); Potassium 4.1 mmol/L (3.4-5.1); Sodium 139 mmol/L (137-145); Total Protein 6.9 g/dL (6.3-8.2)
[2025-01-19] MEDS: SODIUM CHLORIDE 0.9% 1,000 ML 1000 ML IV (09:07)
--- NOTE | 2025-01-19 11:19 | PC.NURSE ---
at 1030 updated patient that is able to go when he can get a ride otherwise it will be between 0021-1467 because of dilauded from medics. patient states he needs to attend his therapy appointment first at 1100 and then he'll address it.
== END 2025-01-19 15:17 | disposition home or self-care (01) ==
PROVIDERS: Emergency Provider Emergency Medicine; PCP Family Medicine
DX: S39.012A Strain of muscle, fascia and tendon of lower back, initial encounter (principal); W18.30XA Fall on same level, unspecified, initial encounter
CPT/HCPCS: 70450; 71275; 72125; 74177; 80053; 85025; 99284; Q9967

== ENCOUNTER 2025-06-08 15:18 | Emergency (ER) | payer MEDICARE, OTHER, SELFPAY ==
[2024-11-12 03:21] VITALS: BMI 33.2
--- OUTSIDE RECORDS SUMMARY | 2025-06-08 15:21 | XMS_ITS | Continuity of Care Document ---
Author Organization [facility], Main Office Address [address] [place] [address] Assessment No assessment recorded. Plan of Treatment Reminders Order Date Submit Date Provider Last Modified By Organization Details Last Modified Time Details Appointments None recorded . Lab PSA, serum or plasma 025 03/24/20 [facility], [address] [place], [address], 01:06:51 Referral None recorded . Procedures None recorded . Surgeries None recorded . Imaging None recorded . Medication Orders None recorded . Patient TargetsNo targets recorded. Patient InstructionsNo instructions recorded. Reason for Referral None Reported. Results Created Date Observation Date Name Description Value Unit Range Abnormal Flag Note LastModifiedBy Organization Detail LastModifiedTime 03/24/2003/25/2025 PSA TOTAL (REFL EX TO FREE) reflex criteria COMMEN T The perce nt free PSA is perfo rmed on a refle x basis only when the total PSA is betwe en 4.0 and 10.0 ng/mL . Not Available [facility] ([facility]) [address] [facility], [place], [address], 2025 01:06:51 03/24/2003/26/2025 PSA TOTAL (REFL EX TO FREE) prostate specific Ag 0.4 NG/mL 0.0-4. 0 normal Ivana ECLIA metho dolog y. Accor ding to the Ameri can [employer] g[employer] iatio n, Serum PSA shoul d decre ase and remai n at undet ectab le level s after radic al prost atect teddy. The AUA defin es bioch emica l recur rence as an initi al PSA value 0.2 ng/mL or great er follo wed by a subse quent confi rmato ry PSA value 0.2 ng/mL or great er. Value s obtai juloi with diffe rent assay metho ds or kits canno t be used inter brennan eay . Resul ts canno t be inter prete d as absol eyak evide nce of the prese nce or absen ce of frankie sánchez se. Not Available [facility] ([facility]) [address] [facility], [place], [address], 2025 01:06:51 Result Notes None recorded. Problems Name Problem SNOMED Code Status Onset Date Resolution Date Notes Provider Name and Address Organization Details Recorded Time Primary malignant neoplasm of prostate 10345466 Active following with Dr Taveras, hormonal treatment for now Tim Kellogg MD [address] [place], [address] , [facility] 3 13:43:43 Parkinson' s disease 88742937 Active Not Available [facility] 2 03:48:11 Essential hypertensi on 33324789 Active Not Available [facility] 2 03:48:11 Hyperlipid emia 49207637 Active Not Available [facility] 2 03:48:11 Problem Notes None recorded. Procedures Surgical History Date Name Laterality Status Provider Name and Address Organization Details Recorded Time 5 Suture/Staple removal completed Tim Kellogg MD [address] [place], [address], [facility] 02/15/2025 14:09:58 5 Laceration Repair completed Tim Kellogg MD [address] [place], [address], [facility] 02/07/2025 00:49:01 Imaging Results None recorded. Procedure Notes None recorded. Medical Equipment None Reported. Allergies Allergen ID Allergen Name Allergen Category Reaction Reaction Severity Criticality Documentation Date Start Date Code Code System Note Provider Name and Address Organization Details Recorded Time 2244 honey bee venom environme nt swelling severe Not available 08/07/20222017 70933 7 RxNorm Tim Kellogg MD [address] [place], [address], [facility] 3 20:25:49 278 honey bee venom medicatio n angioedem a severe Not available 12/26/2020 60318 7 RxNorm Tim Kellogg MD [address] [place], [address], [facility] 1 16:16:52 3926 yellow jacket venom protein Not available swelling Not available Not available 04/21/20252012 36617 0 RxNorm Not Available brianna - External Data Service - prod 5 18:31:08 Medications Name Sig Start Date Stop Date Status Note LastModified by Organization Details LastModified Time amantadine HCl 100 mg tablet active Not Available Not Available Not Available glycopyrrol ate 1 mg tablet 02/04 completed Not Available Not Available Not Available atorvastati n 40 mg tablet Take 1 tablet every day by oral route in the evening. 2024 active Not Available Not Available Not Avai lable methocarbam ol 500 mg tablet take ONE tablet by MOUTH three times daily FOR 7 DAYS active Not Available Not Available No t Available bicalutamid e 50 mg tablet 06/13 completed Not Available Not Available Not Available prednisone 10 mg tablet Take 4 tablets by mouth daily x 2 days, then 3 daily x 2 days, 2 tablets daily x 2, 1 tablet daily x 2, then 1/2 tab daily x 2 03/06 completed Not Available Not Available Not Available venlafaxine 75 mg tablet Take one tablet twice daily by mouth 06/05 completed Not Available Not Available Not Available atorvastati n 10 mg tablet Take 1 {tbl} by oral route. 02/25 completed Not Available Not Available Not Available azithromyci n 250 mg tablet TAKE 2 TABLETS (500 MG) BY ORAL ROUTE ONCE DAILY FOR 1 DAY THEN 1 TABLET (250 MG) BY ORAL ROUTE ONCE DAILY FOR 4 DAYS 02/24 completed Not Available Not Available Not Available ibuprofen 800 mg tablet Take 1 tablet 3 times a day by oral route with meals. 06/13 completed Not Available Not Available Not Available naltrexone 50 mg tablet Take 2 tablets every day by oral route, for help curbing alcohol intake. 02/25 completed Not Available Not Available Not Available amlodipine 2.5 mg tablet TAKE 1 TABLET EVERY DAY FOR BLOOD PRESSURE 2024 active Not Available Not Available Not Avai lable acetaminoph en 300 mg-codeine 30 mg tablet Take 1 tablet every 6 hours by oral route as needed. 06/05 completed Not Available Not Available Not Available amlodipine 5 mg tablet Take 1 {tbl} by oral route. 09/02 completed Not Available Not Available Not Available ciprofloxac in 500 mg tablet 02/24 completed Not Available Not Available Not Available omeprazole 40 mg capsule,del ayed release Take 1 capsule every day by oral route. 06/13 completed Not Available Not Available Not Available pramipexole 0.5 mg tablet 11/10 completed Not Available Not Available Not Available tamsulosin 0.4 mg capsule Take 2 capsules every day by oral route for 90 days. 2024 active Not Available Not Available Not Avai lable baclofen 10 mg tablet active Not Available Not Available No t Available cephalexin 500 mg capsule Take 1 capsule every 6 hours by oral route. 06/05 completed Not Available Not Available Not Available hydrochloro thiazide 12.5 mg capsule TAKE 1 CAPSULE EVERY DAY BY ORAL ROUTE, FOR BLOOD PRESSURE. 02/04 completed Not Available Not Available Not Available oxybutynin chloride ER 5 mg tablet,exte nded release 24 hr Take 1 tablet every day by oral route. 06/13 completed Not Available Not Available Not Available codeine 10 mg-guaifene sin 100 mg/5 mL oral liquid Take 10 mL every 4 hours by oral route. 03/06 completed Not Available Not Available Not Available hydrochloro thiazide 25 mg tablet Take 1 {tbl} by oral route. 09/02 completed Not Available Not Available Not Available carbidopa 25 mg-levodopa 100 mg tablet 2 {tbl}s by oral route. active Not Available Not Available No t Available megestrol 20 mg tablet 02/25 completed Not Available Not Available Not Available cefdinir 300 mg capsule TAKE ONE CAPSULE BY MOUTH TWICE DAILY 02/04 completed Not Available Not Available Not Available escitalopra m 10 mg tablet TAKE 1 TABLET EVERY DAY 2024 active Not Available Not Available Not Avai lable tadalafil 5 mg tablet Take 1 tablet every day by oral route, for BPH. 2023 active Not Available Not Available Not Avai lable tadalafil 20 mg tablet TAKE 1 TABLET BY MOUTH ONCE DAILY NEEDED active Not Available Not Available No t Available duloxetine 20 mg capsule,del ayed release Take 1 capsule twice a day by oral route. 05/25 completed Not Available Not Available Not Available magnesium active Not Available Not Kallie ilable Not Available aspirin 81 mg daily 06/13 completed Not Available Not Available Not Available tamsulosin 06/13 completed Not Available Not Available Not Available Vitamin D3 active Not Available Not Av ailable Not Available B-Complex active Not Available Not Kallie ilable Not Available Fowler Oil-1000 active Not Available Not Available Not Available pramipexole 0.75 mg tablet 2 {tbl}s by oral route. active Not Available Not Available No t Available BinaxNOW COVID-19 Ag Self Test kit TEST DIRECTED TODAY 02/24 completed Not Available Not Available Not Available Zepbound 5 mg/0.5 mL subcutaneou s pen injector Inject 5 mg every week by subcutane ous route. 2024 active Not Available Not Available Not Avai lable Zepbound 2.5 mg/0.5 mL subcutaneou s pen injector Inject 2.5 mg every week by subcutane ous route for 28 days. 02/04 completed Not Available Not Available Not Available Vitals None Recorded Social History Question Answer Notes LastModified by Organizat ion Details LastModified Time Tobacco Smoking Status Never Smoker Tim Kellogg MD [address] [place] [address], [address], [facility] 12/26/2020 16:16:14 Do You Have An Advance Directive? No [email or web address] Information not available 12/26/2020 Are You Blind Or Do You Have Difficulty Seeing? No [email or web address] Information not available 12/26/2020 Are You A Caregiver? No [email or web address] Information not available 12/26/2020 Are You Deaf Or Do You Have Serious Difficulty Hearing? No [email or web address] Information not available 12/26/2020 Do You Have A Medical Power Of Appraiser Land? No [email or web address] Information not available 12/26/2020 What Was The Date Of Your Most Recent Tobacco Screening? 07/08/2024 [email or web address] Information not available 07/08/2024 What Is Your Relationship Status? [email or web address] Information not available 12/26/2020 Are You Passively Exposed To Smoke? No [email or web address] Information no t available 12/26/2020 Are There Any Smokers In Your House? No [email or web address] Information not available 12/26/2020 Has Tobacco Cessation Counseling Been Provided? No [email or web address] Information not available 08/15/2022 Are You Currently In School? No [email or web address] Information not available 12/26/2020 Sex: Unknown Functional Status Question Answer Note LastModified by Organizat ion Details LastModified Time Do you use any illicit or recreational drugs? No [email or web address] Information not available 12/26/2020 Do you or have you ever used any other forms of tobacco or nicotine? No [email or web address] Information not available 08/15/2022 What is your level of alcohol consumption? Moderate [email or web address] Information not available 12/26/2020 Are you currently employed? Yes [employer] [email or web address] Information not available 12/26/2020 Are you able to walk independently without assistance or assistive devices? YESWOREST [email or web address] Information not available 12/26/2020 Are you able to care for yourself independently? Yes [email or web address] Information not available 12/26/2020 Mental Status None recorded. Family History Relationship Description Onset Age of this Age Resolved Age Notes LastModified by Organization Details LastModified Time Paternal Uncle Parkinson's disease [email or web address] Not available 2024 16:24:02 Father Heart disease 82 [email or web address] Not available 05/07 16:51:41 Medical History Condition Response Depression Y Immunizations Vaccine Type Date Status Note Provider Nam e and Address Organization Details Recorded Time COVID-19, mRNA, LNP-S, PF, 100 mcg/0.5mL dose or 50 mcg/0.25mL dose 1 completed Not Available [facility] 04/21/2025 18:31:25 COVID-19, mRNA, LNP-S, PF, 100 mcg/0.5mL dose or 50 mcg/0.25mL dose 1 completed Not Available [facility] 04/21/2025 18:31:25 COVID-19, mRNA, LNP-S, PF, 100 mcg/0.5mL dose or 50 mcg/0.25mL dose 1 completed Not Available [facility] 04/21/2025 18:31:25 COVID-19, mRNA, LNP-S, PF, 100 mcg/0.5mL dose or 50 mcg/0.25mL dose 2 completed Not Available [facility] 04/21/2025 18:31:25 COVID-19, mRNA, LNP-S, PF, yue-sucrose, 30 mcg/0.3 mL 3 completed Not Available [facility] 04/21/2025 18:31:25 COVID-19, mRNA, LNP-S, bivalent, PF, 30 mcg/0.3 mL dose 2 completed Not Available [facility] 04/21/2025 18:31:25 Influenza, high-dose, quadrivalent, PF 2 completed Not Available [facility] 04/21/2025 18:31:25 Influenza, split virus, trivalent, PF 4 completed Not Available [facility] 04/21/2025 18:31:25 Influenza, split virus, trivalent, PF 5 completed Not Available [facility] 04/21/2025 18:31:25 Pneumococcal conjugate PCV 13 9 completed Not Available [facility] 04/21/2025 18:31:25 RSV, bivalent, protein subunit RSVpreF, diluent reconstituted, 0.5 mL, PF 3 completed Not Available [facility] 04/21/2025 18:31:25 Tdap 2 completed Not Available [facility] 04/21/2025 18:31:25 Influenza, split virus, quadrivalent, PF 9 completed Not Available [facility] 04/21/2025 18:31:25 Past Encounters Encounter ID Performer Location Encounter Start Date Encounter Closed Date Diagnosis/Indication Diagnosis SNOMED-CT Code Diagnosis ICD10 Code Diagnosis IMO Codes Diagnosis Note [id number] Tim Kellogg MD Main Office [address] [place] [address] 03/24/2025 16:21:22 03/24/2025 16:50:35 Primary malignant neoplasm of prostate 08622939 C61 N52.37 Health Concerns Section Related Observation LastModified by Organization Detai ls LastModified Time None Recorded Concern Status LastModified by Organization Details LastModified Time None Recorded Payers Encounter Date Sequence Insurance Name Policy Number Policy Velazco Covered Member ID Velazco Member ID Guarantor Name 03/24/2025 1 [place]ICARE [place]: [employer] [facility] Laureano Solomon [id number] Laureano Solomon 03/24/2025 2 enrich-in (MEDICARE SUPPLEMENT) Laureano Solomon [id number] Laureano Solomon Notes Date Note Type Note Provider Name and Address Organization Details Recorded Time 03/24/2025 text/html Results sent to ordering provider.Location/ Physician:[facility]/ Davi Guzman, DOP: [phone]: [phone] Ordered Include: PSA Consent obtained for labs to be drawn and reviewed with pt. Site prepped with alcohol. Venipuncture with 21 x 1.5 needle without incident. 1 attempt W/ blood return successful. Pt. tolerated well. Pressure applied following needle removal. Puncture site covered with cotton and Coban. Pt. educated to remove bandage in 10 minutes and alert us if bleeding has not subsided. Office will send lab results, by pt portal or [employer]PS when results available and have been reviewed by Dr. Kellogg. Repeat labs and or F/U appts will be recommended, when applicable. Tim Kellogg MD [address] [place], [address], [facility] 03/25/2025 00:05:30
[2025-06-08 16:08] VITALS: BP 132/69; PULSE 69; RESP 18; TEMP 36.4; O2SAT 97; BMI 31.1
--- NOTE | 2025-06-08 16:12 | DI.RAD.S_ITS ---
PROCEDURE: XR CHEST 1V INDICATIONS: Chest Pain TECHNIQUE: One view of the chest was acquired. COMPARISON: [facility], CR, XR CHEST 1V, 11/11/2024, 23:25. FINDINGS: Surgical changes and devices: None. Lungs and pleura: Lungs are clear. No pleural effusions or pneumothorax. Mediastinum: Mediastinal contours appear normal. Heart size is normal. Bones and chest wall: No suspicious bony lesions. Overlying soft tissues appear unremarkable. IMPRESSION: No acute cardiopulmonary abnormality is seen. Dictated by: Rober Armstrong M.D. on 06/08/2025 at 15:57 Approved by: Rober Armstrong M.D. on 06/08/2025 at 15:58
[2025-06-08 16:19] LABS: Add Manual Diff / Slide Review NO; Hematocrit 40.6 % (41-53); Hemoglobin 14.0 g/dL (13.5-17.5); Lymphocytes Absolute Auto 1100 /uL (1100-4500); Mean Corpuscular HGB Conc 34.4 % (30-36); Mean Corpuscular Hemoglobin 29.4 PG (26-34); Mean Corpuscular Volume 85.4 fL (80-100); Platelet Count 231 X10^3/uL (150-400)
[2025-06-08 16:27] LABS: INR 1.1 (0.9-1.3); Prothrombin Time 12.1 SECONDS (9.4-12.5)
[2025-06-08 16:29] LABS: PTT Partial Thromboplastin Tim 33 SECONDS (25.1-36.5)
[2025-06-08 16:31] LABS: Alanine Aminotransferase 7 IU/L (<50); Albumin 4.8 g/dL (3.5-5.0); Albumin Globulin Ratio 1.7 (1.0-2.8); Alkaline Phosphatase 115 U/L (38-126); Blood Urea Nitrogen 17 mg/dL (9-20); Calcium 9.7 mg/dL (8.4-10.2); Carbon Dioxide 26 mmol/L (22-32); Chloride 107 mmol/L (98-107); Creatine Kinase 49 U/L (55-170); Estimated Glomerular Filt Rate > 60 mL/min (>60); Globulin 2.9 g/dL (1.7-4.1); Glucose 109 mg/dL (70-99); HEMOLYSIS < 15 (0-50); Lipase 74 U/L (23-300); Magnesium 2.0 mg/dL (1.6-2.3); Potassium 4.3 mmol/L (3.4-5.1); Sodium 141 mmol/L (137-145); Total Protein 7.7 g/dL (6.3-8.2)
[2025-06-08 16:42] LABS: Troponin I < 0.012 ng/mL (0.01-0.034)
[2025-06-08 17:04] LABS: NT-proBNP (BNP-Adult 18+) 238 pg/mL (<450)
[2025-06-08 19:24] VITALS: BP 151/72; PULSE 68; RESP 22; TEMP 36.3; O2SAT 98
== END 2025-06-08 19:28 | disposition left against medical advice (07) ==
PROVIDERS: Student in an Organized Health Care Education/Training Program; Emergency Provider Emergency Medicine; PCP Family Medicine
DX: G20.A1 Parkinson's disease without dyskinesia, without mention of fluctuations (principal); R53.1 Weakness
CPT/HCPCS: 36415; 71045; 80053; 82550; 83690; 83735; 83880; 84484; 85025; 85610; 85730; 99283